=== PATIENT | female | born 1955 | race Caucasian/White ===

== ENCOUNTER → 2018-02-23 12:43 | Outpatient (CLI) | payer MEDICAID, SELFPAY ==
--- NOTE | 2018-02-23 12:45 | BI_ITS ---
MAMMOGRAPHY - BILATERAL SCREENING 3-D CORAL SYNTHESIS REASON FOR EXAM: Female, 62 years old. Bilateral Screening 3-D tomosynthesis PERTINENT HISTORY: No significant family history. TECHNIQUE: 2-D mammograms and 3-D Coral synthesis of the breast (s) were performed. CAD was performed. COMPARISON: June 04, 2015. FINDINGS: The breast composition is composed of scattered fibroglandular density. No dense spiculated masses or suspicious microcalcifications are identified. No architectural distortion is identified. There is no skin thickening or retraction. There has been no significant change since the prior study. BI/SCREENING MAMM (CAD), BILAT IMPRESSION: No mammographic signs of malignancy. Routine yearly mammograms recommended. ASSESSMENT CATEGORY: BIRADS Category 1: Negative. A letter regarding these results will be sent to the patient by the facility within 30 days. FOLLOW UP RECOMMENDATION: Yearly follow up mammogram recommended. (A) Approximately 10% of breast cancers are not detected by mammography. A normal mammogram should not delay biopsy of a clinically suspicious abnormality. Electronically Signed: Dane Vázquez MD at 14:35 EDT , Service support ,
== END ==
PROVIDERS: Visit Provider Obstetrics & Gynecology
DX: Z12.31 Encounter for screening mammogram for malignant neoplasm of breast (principal)
CPT/HCPCS: 77063; 77067

== ENCOUNTER → 2021-06-11 13:57 | Outpatient (CLI) | payer MEDICARE, BC, SELFPAY ==
--- NOTE | 2021-06-11 14:00 | BI_ITS ---
MAMMOGRAPHY - BILATERAL SCREENING REASON FOR EXAM: Female, 66 years old. Routine annual screening examination. PERTINENT HISTORY: Mother with breast cancer. Grandmother with breast cancer. Aunt with breast cancer. TECHNIQUE: Digital bilateral breast coral (3D mammographic acquisition) in the CC and MLO projections. 2-D mediolateral oblique (MLO) and craniocaudad (CC) views of both breasts were obtained. CAD: Full Field Digital Mammography with Computer Added Detection was performed. COMPARISON: Comparison is made with prior study dated 02/23/2018 and 06/04/2015. FINDINGS: Breast Composition: There are scattered areas of fibroglandular density. There are no dominant masses or suspicious calcifications. Stable small benign-appearing bilateral axillary lymph nodes. No other significant abnormalities are identified. There has been no significant change since the prior study. BI/SCRN MAMM (CAD)W/CORAL BILAT IMPRESSION: Stable bilateral screening mammogram. Yearly follow-up mammogram recommended. (A) ASSESSMENT CATEGORY: BIRADS Category 2: Benign. A letter regarding these results will be sent to the patient by the facility within 30 days. Approximately 10% of breast cancers are not detected by mammography. A normal mammogram should not delay biopsy of a clinically suspicious abnormality. [id number] Electronically Signed: Pelon Key MD at 14:51 EDT , Service support ,
== END ==
PROVIDERS: Referring Provider Family Medicine; Visit Provider Family Medicine
DX: Z12.31 Encounter for screening mammogram for malignant neoplasm of breast (principal); Z80.3 Family history of malignant neoplasm of breast
CPT/HCPCS: 77063; 77067

== ENCOUNTER → 2022-07-29 | Outpatient (CLI) | payer MEDICARE, BC, SELFPAY ==
--- NOTE | 2022-07-29 14:42 | BI_ITS ---
MAMMOGRAPHY - BILATERAL SCREENING REASON FOR EXAM: Female, 67 years old. Routine annual screening examination. PERTINENT HISTORY: Mother with breast cancer. Grandmother with breast cancer. Aunt with breast cancer. TECHNIQUE: Digital bilateral breast coral (3D mammographic acquisition) in the CC and MLO projections. 2-D mediolateral oblique (MLO) and craniocaudad (CC) views of both breasts were obtained. CAD: Full Field Digital Mammography with Computer Added Detection was performed. COMPARISON: Comparison is made with prior study 06/11/2021 and 02/23/2018. FINDINGS: Breast Composition: There are scattered areas of fibroglandular density. There are no dominant masses or suspicious calcifications. Stable small benign-appearing bilateral axillary lymph nodes. No other significant abnormalities are identified. There has been no significant change since the prior study. BI/SCRN MAMM (CAD)W/CORAL BILAT IMPRESSION: Stable bilateral screening mammogram. Yearly follow-up mammogram recommended. (A) ASSESSMENT CATEGORY: BIRADS Category 2: Benign. A letter regarding these results will be sent to the patient by the facility within 30 days. Approximately 10% of breast cancers are not detected by mammography. A normal mammogram should not delay biopsy of a clinically suspicious abnormality. [id number] Electronically Signed: Pelon Key MD at 15:25 EDT ,
== END | disposition home or self-care (01) ==
LOC: OPBI 14:42
PROVIDERS: PCP Family Medicine; Visit Provider Nurse Practitioner Women's Health
DX: Z12.31 Encounter for screening mammogram for malignant neoplasm of breast (principal); Z80.3 Family history of malignant neoplasm of breast
CPT/HCPCS: 77063; 77067

== ENCOUNTER → 2023-02-24 | Outpatient (CLI) | payer MEDICARE, BC, SELFPAY ==
--- NOTE | 2023-02-24 12:41 | RAD_ITS ---
INDICATION: PAIN EXAMINATION/TECHNIQUE: X-RAY - RIGHT XR Knee Complete 4 Views or More 5 VIEWS COMPARISON: Not FINDINGS: SOFT TISSUES: No soft tissue swelling or gas. No radiopaque foreign body. BONES/JOINTS: Severe joint space narrowing medial and patellofemoral compartments. Moderate joint space narrowing lateral compartment. Moderate osteophyte formation peripherally of all 3 compartments. RAD/Knee 4 or More Views IMPRESSION: Osteoarthritis as above. Electronically Signed: Srikanth Carvalho MD, VESTA at 19:44 EDT ,
--- NOTE | 2023-02-24 12:44 | RAD_ITS ---
INDICATION: xray bilat knees EXAMINATION/TECHNIQUE: X-RAY - LEFT XR Knee Complete 4 Views or More 4 VIEWS COMPARISON: None FINDINGS: SOFT TISSUES: No soft tissue swelling or gas. No radiopaque foreign body. BONES/JOINTS: Severe joint space narrowing medial compartment, moderate joint space narrowing lateral and patellofemoral compartments. Moderate osteophyte formation peripherally of all 3 compartments. RAD/Knee 4 or More Views IMPRESSION: Osteoarthritis as above. Electronically Signed: Srikanth Carvalho MD, VESTA at 18:09 EDT ,
== END | disposition home or self-care (01) ==
LOC: MTRAD 12:39
PROVIDERS: PCP Nurse Practitioner Family; Referring Provider Nurse Practitioner Family; Visit Provider Nurse Practitioner Family
DX: M25.561 Pain in right knee (principal)
CPT/HCPCS: 73564

== ENCOUNTER → 2023-08-04 | Outpatient (CLI) | payer MEDICARE, BC, SELFPAY ==
--- NOTE | 2023-08-04 13:19 | BI_ITS ---
MAMMOGRAPHY - BILATERAL SCREENING REASON FOR EXAM: Female, 68 years old. Routine annual screening examination. PERTINENT HISTORY: Mother with breast cancer. Grandmother with breast cancer. Aunt with breast cancer. TECHNIQUE: Digital bilateral breast coral (3D mammographic acquisition) in the CC and MLO projections. 2-D mediolateral oblique (MLO) and craniocaudad (CC) views of both breasts were obtained. CAD: Full Field Digital Mammography with Computer Added Detection was performed. COMPARISON: Comparison is made with prior study dated July 29, 2022 and June 11, 2021. FINDINGS: Breast Composition: There are scattered areas of fibroglandular density. There are no dominant masses or suspicious calcifications. Stable small benign-appearing bilateral axillary lymph nodes. No other significant abnormalities are identified. There has been no significant change since the prior study. BI/SCRN MAMM (CAD)W/CORAL BILAT IMPRESSION: Stable bilateral screening mammogram. Yearly follow-up mammogram recommended. (A) ASSESSMENT CATEGORY: BIRADS Category 2: Benign. A letter regarding these results will be sent to the patient by the facility within 30 days. Approximately 10% of breast cancers are not detected by mammography. A normal mammogram should not delay biopsy of a clinically suspicious abnormality. [id number] Electronically Signed: Pelon Key MD at 14:12 EDT ,
== END | disposition home or self-care (01) ==
LOC: OPBI 13:17
PROVIDERS: PCP Nurse Practitioner Family; Referring Provider Family Medicine; Visit Provider Family Medicine
DX: Z12.31 Encounter for screening mammogram for malignant neoplasm of breast (principal); Z80.3 Family history of malignant neoplasm of breast
CPT/HCPCS: 77063; 77067

== ENCOUNTER 2023-08-09 04:08 | Emergency (ER) | payer MEDICARE, BC, SELFPAY ==
[2023-08-09 04:10] VITALS: BP 148/77; RESP 84; TEMP 36.4; O2SAT 18; BMI 48.0
--- NOTE | 2023-08-09 04:12 | EKG12_ITS ---
Test Reason : DYSRHYHMIA Blood Pressure : / mmHG Vent. Rate : 076 BPM Atrial Rate : 076 BPM P-R Int : 190 ms QRS Dur : 092 ms QT Int : 408 ms P-R-T Axes : 070 -37 027 degrees QTc Int : 459 ms Normal sinus rhythm Left axis deviation Nonspecific ST abnormality Abnormal ECG Confirmed by BETI PROCTOR, WILBER ([id number]), medical transcription editor LEON CHINO ([id number]) on 08/10/2023 12:47:44 PM Referred By: MATEUS Confirmed By:WILBER BANG MD
--- NOTE | 2023-08-09 04:12 | CT_ITS ---
INDICATION: trauma EXAMINATION: CT CERVICAL SPINE - CT Spine Cervical W/O Contrast Injection TECHNIQUE: Helically acquired images were obtained of the cervical spine. 2D reformatted images were reviewed. A radiation dose optimization technique was used for this scan. IV Contrast dosage and agent: None. COMPARISON: None. FINDINGS: VERTEBRAE: No fracture or acute compression deformity. No discrete lytic or blastic abnormality. Degenerative straightening of the normal cervical lordosis without listhesis with multilevel anterior bridging osteophytes. Normal craniocervical junction and cervicothoracic junction. DISCS and SPINAL CANAL: Disc height loss most prominent in the lower cervical spine with small posterior disc osteophyte complexes most prominent C5-C6 and C6-C7 with mild spinal canal stenosis and up to moderate to severe right neural foraminal stenosis at C5-C6. No critical stenosis. NECK SOFT TISSUES: No prevertebral soft tissue swelling. There is no cervical adenopathy. Heterogeneous thyromegaly with left thyroid calcification. LUNG APICES: Clear. CT/Spine Cervical without Contras IMPRESSION: No evidence of acute cervical spinal fracture or spondylolisthesis. Spondylosis as above. Homogeneous thyromegaly with calcification. Recommend ultrasound follow-up when clinically able. Electronically Signed: Mayco Keene MD at 5:32 EDT ,
--- NOTE | 2023-08-09 04:12 | CT_ITS ---
INDICATION: head trauma EXAMINATION: CT BRAIN - CT Head or Brain W/O Contrast Injection TECHNIQUE: Multiple axial images were obtained of the head without intravenous contrast. A radiation dose optimization technique was used for this scan. IV Contrast dosage and agent: None. COMPARISON: None FINDINGS: BRAIN PARENCHYMA: No intra- or extra-axial hemorrhage. No evidence of acute infarct. No intracranial mass or mass effect. Mild periventricular and subcortical white matter hypodense chronic small vessel white matter ischemic change. There is preservation of the mancia/white matter interface. Posterior fossa structures are unremarkable. CSF SPACES: Cerebral volume appropriate for age. No hydrocephalus. Basal cisterns are patent. CALVARIUM, SKULL BASE, PARANASAL SINUSES AND MASTOID AIR CELLS: Mild hyperostosis frontalis.No acute osseous finding. Mild scattered paransal sinus mucoperisteal thickening. Mastoid air cells are clear. ORBITS: Both globes, extraocular muscles, optic nerves and retrobulbar fat appear unremarkable. ASPECTS Score for Acute Strokes: 10 CT/Brain/Head without Contrast IMPRESSION: No CT evidence of acute intracranial hemorrhage or injury. Mild senescent changes compatible with age. Electronically Signed: Mayco Keene MD at 5:27 EDT Reading Location ID and State: [facility] / [place] Tel , Service support ,
--- NOTE | 2023-08-09 04:12 | CT_ITS ---
We are attempting to reach an attending provider to discuss findings. An addendum with communication details will be sent when the communication is complete. STUDY: CT CHEST, ABDOMEN T PELVIS WITH CONTRAST REASON FOR EXAM: Female, 68 years old. trauma RADIATION DOSAGE (If Supplied By Facility): CTDIvol = ( 20.88 ) mGy, DLP = ( 2541.36 ) mGycm TECHNIQUE: Transaxial imaging was performed following intravenous administration of 100 ML 370 ISOVUE. Individualized dose optimization techniques were used for this CT. COMPARISON: No relevant priors. FINDINGS: CHEST Multiple small thyroid nodules. Minimal dependent atelectasis. No consolidation, effusion, contusion, or pneumothorax.. There is no demonstrated pleural abnormality. No retrosternal hematoma. Normal heart and pericardium. Mild multivessel coronary atherosclerosis. No mediastinal or hilar adenopathy. Normal unenhanced pulmonary arteries. Mild aortic atherosclerosis without dissection or ectasia. Mild fluid in the distal esophagus without wall thickening or distention. Normal osseous structures. . ABDOMEN PELVIS Normal liver. Normal gallbladder and extrahepatic biliary system. Normal spleen. Normal pancreas. Normal bilateral adrenal glands. Normal right kidney. Left renal exophytic 1.9 cm cyst, no imaging follow-up required.. Well filled bladder without wall thickening or surrounding inflammation. No acute gastric finding. No small bowel distention or wall contusion. Normal appendix. Moderate to large colonic stool burden. No colonic wall thickening or surrounding inflammation. . Mild aortic atherosclerosis without ectasia.. . Absent uterus. No evidence of adnexal mass. MUSCULOSKELETAL: L1 superior endplate compression fracture with less than 10% anterior vertebral height loss and mild retropulsion of the superior endplate causing minimal spinal canal narrowing along with posterior disc bulge. Diffuse anterior vertebral bridging osteophytes in the thoracic spine are noted. Slight widening of the posterior interspinous space at L1-L2. Minimal L1 paravertebral soft tissue edema without large hematoma. Normal abdominal wall. Normal osseous structures. CT/CT Chest, Abd, Pel w/Contrast IMPRESSION: L1 superior endplate compression fracture with mild anterior vertebral height loss and mild retropulsion of the superior plate causing mild spinal canal narrowing and minimal paraspinal edema. Slight widening of the posterior interspinous space at L1-L2 suggestive of interspinous ligament sprain. MRI may be beneficial to exclude additional ligamentous injury. No evidence of other injury within the chest abdomen and pelvis. Mild fluid in the esophagus as can be seen with gastroesophageal reflux. Moderate to large colonic stool burden. Electronically Signed: Mayco Keene MD at 6:11 EDT ,
--- NOTE | 2023-08-09 04:14 | RAD_ITS ---
INDICATION: pain EXAMINATION/TECHNIQUE: X-RAY - LEFT XR Forearm 2 Views 2 VIEWS COMPARISON: No relevant prior comparison study available FINDINGS: SOFT TISSUES: Focal dorsal ulnar mid forearm edema. No subcutaneous emphysema. No radiopaque foreign body. BONES/JOINTS: No acute fracture .. Normal alignment. Preservation of the joint space.. No sclerotic or destructive changes observed. RAD/Forearm 2 Views IMPRESSION: Focal mid forearm soft tissue edema compatible with hematoma or infection. No acute osseous finding Electronically Signed: Mayco Keene MD at 5:46 EDT ,
[2023-08-09] MEDS: 0.9% Normal Saline (1000mL) 1,000 ML 1000 ML IV (04:20)
[2023-08-09 04:21] VITALS: BP 148/77; PULSE 84; RESP 18; TEMP 36.4; O2SAT 100
--- NOTE | 2023-08-09 04:31 | EDS_ITS ---
HPI History of Present Illness Chief Complaint: Trauma [facility] Medical History (Updated 12/24/21 @ 14:57 by Letty Hall) Arthritis Depression DM2 (diabetes mellitus, type 2) Gout HTN (hypertension) Home Medications ascorbate calcium (vitamin C) 500 mg tablet 500 mg PO DAILY 12/24/21 [History Last Taken Unknown] cholecalciferol (vitamin D3) 50 mcg (2,000 unit) capsule 50 mcg PO DAILY 12/24/21 [History Last Taken Unknown] citalopram 40 mg tablet 20 mg PO DAILY 12/24/21 [History Last Taken Unknown] hydroleuronic acid PO 1XD 12/24/21 [History Last Taken Unknown] lisinopril 10 mg-hydrochlorothiazide 12.5 mg tablet 1 tab PO DAILY 12/24/21 [History Last Taken Unknown] nabumetone 750 mg tablet 750 mg PO BID 12/24/21 [History Last Taken Unknown] saw palmeto PO 1XD 12/24/21 [History Last Taken Unknown] Allergy/AdvReac Type Severity Reaction Status Date / Time No Known Allergies Allergy Verified 08/09/23 04:24 Family History (Updated 12/24/21 @ 15:08 by Letty Hall) Mother Hypertension Breast cancer Father Heart disease Grandmother Breast cancer Aunt Breast cancer Surgical History (Updated 12/24/21 @ 15:21 by Lashanda Rey NP, [employer]) History of hysterectomy History of tonsillectomy Social History (Updated 12/24/21 @ 14:59 by Letty Hall) household members: spouse current occupational status: employed and retired current occupation: self Smoking Status: Never smoker alcohol intake: current alcohol intake frequency: holidays/special occasions only substance use type: does not use diet: low carbohydrate what type of physical activity do you participate in: walking frequency: 3-4 times per week seatbelt use: always do you feel safe at home: Yes additional social history: - Art EXAM Physical Exam Const Vital Signs: 08/09/23 04:10 08/09/23 04:21 08/09/23 04:27 Temperature 97.5 F L 97.5 F L 97.5 F L Temperature Source Temporal Temporal Oral Pulse Rate 84 84 Respiratory Rate 84 H 18 18 Blood Pressure 148/77 H 148/77 H 148/77 H Blood Pressure Mean 100 100 100 Pulse Ox 18 100 99 Oxygen Delivery Method Non-Rebreather @ 15L/min Non-Rebreather @ 15L/min Non-Rebreather @ 15L/min Discharge Plan Triage Chief Complaint: Trauma Other Complaint: Back ED Provider: Bernard Padron Dx/Rx/DC Orders Prescriptions: No Action lisinopril-hydrochlorothiazide 10-12.5 mg tablet 1 tab PO DAILY nabumetone 750 mg tablet 750 mg PO BID citalopram 40 mg tablet 20 mg PO DAILY ascorbate calcium (vitamin C) 500 mg tablet 500 mg PO DAILY cholecalciferol (vitamin D3) 50 mcg (2,000 unit) capsule 50 mcg PO DAILY saw palmeto PO 1XD hydroleuronic acid capsule PO 1XD Primary Care Provider: Renetta Henry Referrals: Renetta Henry, [employer] [Primary Care Provider] -
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
[2023-08-09 04:34] LABS: Absolute Lymphocyte Count 1.57 X10^3/uL (0.83-4.51); Absolute Neutrophil Count 14.9 X10^3/uL (2.0-7.7); Basophil# 0.08 X10^3/uL; Basophil% 0.4 % (0-1); Eosinophil# 0.11 X10^3/uL; Eosinophils% 0.6 % (0-5); Hematocrit 43.7 % (37-47); Hemoglobin 13.8 g/dL (12.0-15.0); Lymphocyte # 1.57 X10^3/ul (0.83-4.51); Lymphocyte % 8.3 % (19-41); Mean Corp Hgb Conc 31.6 g/dL (32-36); Mean Corpuscular Hgb 28.2 pg (27.0-32.0); Mean Corpuscular Volume 89.2 fL (81-99); Mean Platelet Vol. 10.1 fl (6.2-12.0); Monocyte# 1.85 X10^3/uL; Monocyte% 9.8 % (0-10); NRBC Flagged by Analyzer 0 % (0-5); Neutrophil # 14.87 X10^3/uL (2.7-7.7); Neutrophil % 78.5 % (47-70); POSITIVE DIFFERENTIAL YES; Platelet Count 213 K/mm3 (150-450); RBC Distribution Width CV 15.1 % (11.6-14.6); RBC Distribution Width SD 49.6 fl (35.1-43.9); White Blood Count 18.9 K/mm3 (4.4-11.0)
[2023-08-09 04:36] LABS: Carboxyhemoglobin Frac (CO) 5.6 % (0.0-1.5)
[2023-08-09 04:40] LABS: Differential Indicated SCAN CRITERIA MET
[2023-08-09 04:52] LABS: ALB/GLOB Ratio 1.2 RATIO (0.9-2.4); AST(SGOT) 59 U/L (15-37); Alanine Aminotransfer ALT/SGPT 60 U/L (13-56); Albumin, Serum 3.8 g/dL (3.2-5.0); Alkaline Phosphatase 79 U/L (45-117); Anion Gap 10 (5-15); BUN 40 mg/dL (7-18); BUN/Creat Ratio 35.4 RATIO (10-20); Chloride 108 mmol/L (98-107); Creatinine, Serum 1.13 mg/dL (0.55-1.02); EST Glomerular Filtration Rate 51 mL/min (>60); Est Glom Filt Rate - Afr Amer 62 mL/min (>60); Estimated Creatinine Clearance 45.23 ml/min; Globulin 3.1 g/dL (2.2-4.2); Glucose 137 mg/dL (74-106); Potassium 3.4 mmol/L (3.5-5.1); Protein, Total 6.9 g/dL (6.4-8.2); Sodium Level 142 mmol/L (136-145); Troponin-I HS 11 pg/mL (3.0-54.0)
[2023-08-09 05:00] LABS: Differential Comment SCANNED
[2023-08-09 05:16] VITALS: BP 141/97; PULSE 84; RESP 16; O2SAT 100
[2023-08-09 05:23] LABS: Allen Test Positive; Base Excess -4 mmol/L (-2 to +2); Blood Gas Specimen Type ART; Mode Not entered; O2 Delivery Device NRB; PO2 242 mmHG (75-100); SITE L Radial; SO2 100 % (95-99); Total Carbon Dioxide 21 mmol/L; pCO2 29.2 mmHg (35-45); pH 7.44 (7.35-7.45)
[2023-08-09] MEDS: 0.9% Normal Saline (1000mL) 1,000 ML 999 ML IV (05:29)
[2023-08-09] MEDS: Morphine 4 MG/ML Syringe IV (05:43)
[2023-08-09] MEDS: Ondansetron 4 MG/2 ML Vial IV (05:43)
[2023-08-09 05:51] LABS: Alcohol, Blood (Medical)-Serum < 3.0 mg/dL
[2023-08-09 06:25] VITALS: BP 154/87; PULSE 74; RESP 16; O2SAT 100
[2023-08-09 06:46] VITALS: BP 154/87; PULSE 74; RESP 16; TEMP 36.4; O2SAT 100
[2023-08-09 12:31] LABS: Carboxyhemoglobin Order ORDER TUBE
[2023-08-09 13:02] LABS: Pathologist Review Reviewed
== END 2023-08-09 07:20 | disposition short-term general hospital (02) ==
LOC: ED 06:01
PROVIDERS: Emergency Provider Student in an Organized Health Care Education/Training Program; PCP Nurse Practitioner Family; Visit Provider Student in an Organized Health Care Education/Training Program
DX: M48.56XA Collapsed vertebra, not elsewhere classified, lumbar region, initial encounter for fracture (principal); E11.9 Type 2 diabetes mellitus without complications; I10 Essential (primary) hypertension; S39.012A Strain of muscle, fascia and tendon of lower back, initial encounter; X00.5XXA Jump from burning building or structure in uncontrolled fire, initial encounter; Y92.008 Other place in unspecified non-institutional (private) residence as the place of occurrence of the external cause; F32.A Depression, unspecified; Z79.899 Other long term (current) drug therapy; Z90.710 Acquired absence of both cervix and uterus
CPT/HCPCS: 99285; 36415; 36600; 70450; 71260; 72125; 73090; 74177; 80053; 82077; 82375; 82803; 84484; 85025; 93005; J7030; A4216; J2405

== ENCOUNTER 2023-08-12 18:26 | Inpatient (IN) | payer MEDICARE, BC, SELFPAY ==
[2023-08-12 18:54] VITALS: BP 176/95; PULSE 73; RESP 18; TEMP 37.2; O2SAT 96; BMI 46.1
[2023-08-12] MEDS: oxyCODONE 5 MG Tablet PO (19:49)
[2023-08-12] MEDS: Nystatin Powder 15gm Bottle 1 APPLIC TOPICAL (19:50)
[2023-08-12] MEDS: Losartan Potassium 100 MG Tablet PO (19:50)
[2023-08-12] MEDS: BACITRACIN 15 GM Tube 1 APPLIC TOPICAL (19:51)
[2023-08-12] MEDS: hydroCHLOROthiazide 12.5mg 12.5 MG PO (19:51)
[2023-08-12] MEDS: Senna/Docusate Sodium 1 Tablet PO (19:52)
[2023-08-12] MEDS: Etodolac 300 MG Capsule PO (19:52)
[2023-08-12] MEDS: cycloBENZAPRine HCl 5 MG TABLET PO (19:53)
[2023-08-12] MEDS: Citalopram 20 MG Tablet PO (19:53)
--- NOTE | 2023-08-12 21:23 | US_ITS ---
INDICATION: CT thyromegaly with calcifications EXAMINATION: Ultrasound US Thyroid (eg thyroid, parathyroid, parotid) TECHNIQUE: Leung scale and color doppler imaging was performed of the thyroid gland. COMPARISON: FINDINGS: RIGHT THYROID LOBE: 5.8 x 2.7 x 1.8 cm. Heterogeneity with [multiple cystic thyroid nodules up to 12 mm. LEFT THYROID LOBE: 5.2 x 2.5 x 1.8 cm. Heterogeneity with a complex thyroid cystic nodule measuring 1.7 x 1.3 x 1.0 cm. There is a low pole heterogeneous mass measuring 2.4 x 1.4 x 1.4 cm. ISTHMUS: 5 mm. 9 x 7 x 5 mm cystic nodule. US/Thyroid IMPRESSION: Bilateral nodules as noted. Electronically Signed: Joe Nassar DO at 0:02 EDT ,
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
[2023-08-12 22:00] VITALS: BP 165/85; PULSE 75; RESP 16; TEMP 36.6; O2SAT 96
[2023-08-13] MEDS: traMADol 50 MG Tablet PO ×4 (00:04→17:30)
[2023-08-13] MEDS: Magnesium Hydroxide 30 ML UDC PO (02:57)
[2023-08-13] MEDS: cycloBENZAPRine HCl 5 MG TABLET PO ×3 (05:22→22:41)
[2023-08-13] MEDS: Enoxaparin 40 MG/0.4 ML Syringe SC (05:22)
[2023-08-13] MEDS: Acetaminophen 500 MG Tablet 1000 MG PO ×3 (05:22→22:53)
[2023-08-13 05:37] LABS: Hematocrit 40.6 % (37-47); Hemoglobin 13.2 g/dL (12.0-15.0); Mean Corp Hgb Conc 32.5 g/dL (32-36); Mean Corpuscular Hgb 28.2 pg (27.0-32.0); Mean Corpuscular Volume 86.8 fL (81-99); Mean Platelet Vol. 9.7 fl (6.2-12.0); Platelet Count 219 K/mm3 (150-450); RBC Distribution Width CV 14.8 % (11.6-14.6); RBC Distribution Width SD 47.3 fl (35.1-43.9); Red Blood Count 4.68 M/mm3 (4.2-5.4); White Blood Count 12.3 K/mm3 (4.4-11.0)
[2023-08-13 05:43] VITALS: BMI 45.9
[2023-08-13 06:09] LABS: ALB/GLOB Ratio 0.9 RATIO (0.9-2.4); AST(SGOT) 15 U/L (15-37); Alanine Aminotransfer ALT/SGPT 34 U/L (13-56); Albumin, Serum 3.2 g/dL (3.2-5.0); Alkaline Phosphatase 77 U/L (45-117); Anion Gap 7 (5-15); BUN 17 mg/dL (7-18); BUN/Creat Ratio 22.8 RATIO (10-20); Chloride 102 mmol/L (98-107); Creatinine, Serum 0.75 mg/dL (0.55-1.02); EST Glomerular Filtration Rate 82 mL/min (>60); Est Glom Filt Rate - Afr Amer 100 mL/min (>60); Estimated Creatinine Clearance 51.11 ml/min; Globulin 3.7 g/dL (2.2-4.2); Glucose 115 mg/dL (74-106); Magnesium 2.2 mg/dL (1.6-2.6); Phosphorus 4.4 mg/dL (2.5-4.9); Potassium 3.7 mmol/L (3.5-5.1); Protein, Total 6.9 g/dL (6.4-8.2); Sodium Level 138 mmol/L (136-145)
[2023-08-13 07:39] VITALS: BP 151/83; PULSE 75; RESP 16; TEMP 36.7; O2SAT 95
[2023-08-13] MEDS: Losartan Potassium 100 MG Tablet PO (07:50)
[2023-08-13] MEDS: Etodolac 300 MG Capsule PO ×2 (07:51→22:42)
[2023-08-13] MEDS: Senna/Docusate Sodium 1 Tablet 2 TABLET PO ×2 (07:51→22:44)
[2023-08-13] MEDS: Nystatin Powder 15gm Bottle 1 APPLIC TOPICAL ×2 (07:52→22:42)
[2023-08-13] MEDS: Ascorbic Acid 500 MG Tablet PO (07:52)
[2023-08-13] MEDS: hydroCHLOROthiazide 12.5mg 12.5 MG PO (07:52)
[2023-08-13] MEDS: Menthol/Lanolin/Calamine/Znox 113 GM Tube 1 APPLIC TOPICAL ×2 (07:52→22:40)
[2023-08-13] MEDS: Polyethylene Glycol 3350 17 GM PACKET PO (07:53)
[2023-08-13] MEDS: oxyCODONE 5 MG Tablet 10 MG PO (08:02)
[2023-08-13] MEDS: BACITRACIN 15 GM Tube 1 APPLIC TOPICAL ×2 (08:08→22:39)
[2023-08-13] MEDS: Magnesium Citrate 300 ML PO (08:38)
--- NOTE | 2023-08-13 16:09 | CASEMGMT ---
Social Work SW presented to room, introduced self and role. Pt visibly uncomfortable and reports to feeling nauseous and constipated. SW offered to return on Wednesday to speak. Pt was about to get sick and SW exited room, notified nursing. Dee Dee Go, [employer] OPHTHALMOLOGY TECHNICIAN
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
[2023-08-13 16:28] VITALS: O2SAT 94
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
[2023-08-13] MEDS: proMETHazine 25 MG Tablet PO (17:30)
[2023-08-13] MEDS: Lactulose 20 GM/30 ML UDC 200 GM RC (19:24)
[2023-08-13 20:00] VITALS: BP 161/88; PULSE 81; RESP 16; TEMP 36.8; O2SAT 93
--- NOTE | 2023-08-13 20:50 | RAD_ITS ---
EXAM: XR ABDOMEN, 1 VIEW CLINICAL INDICATION: nausea, consitpation TECHNIQUE: Frontal supine view of the abdomen/pelvis. COMPARISON: No relevant prior studies available. FINDINGS: LOWER THORAX: No acute pathology. GASTROINTESTINAL TRACT: There is gas seen within large and small bowel may represent ileus. ORGANS: Unremarkable as visualized. No organomegaly. No abnormal calcifications. BONES/JOINTS: No acute pathology. SOFT TISSUES: No acute pathology. RAD/Abdomen Single View IMPRESSION: Gas in large and small bowel loops which may represent ileus. Electronically Signed: Kenneth Ramirez MD at 22:02 EDT ,
[2023-08-13 21:34] VITALS: PULSE 97; RESP 18; O2SAT 95
--- NOTE | 2023-08-13 21:39 | CPS ---
Pt. states that she doesn't feel that she's getting enough pressure with current CPAP settings. Pt. placed on CPAP 13 at this time. She states it feels more like what she's used to at home. Pt. comfortable at this time.
[2023-08-13] MEDS: traZODone 100 MG Tablet PO (22:41)
[2023-08-13] MEDS: Citalopram 20 MG Tablet PO (22:41)
[2023-08-13] MEDS: Mirtazapine 15 MG Tablet 7.5 MG PO (22:43)
[2023-08-13] MEDS: Simethicone 40MG/0.6ML Bottle 80 MG PO (23:04)
[2023-08-14] MEDS: traMADol 50 MG Tablet PO ×5 (00:29→23:54)
[2023-08-14] MEDS: Acetaminophen 500 MG Tablet 1000 MG PO ×3 (06:13→21:00)
[2023-08-14] MEDS: cycloBENZAPRine HCl 5 MG TABLET PO ×3 (06:13→20:57)
[2023-08-14] MEDS: Enoxaparin 40 MG/0.4 ML Syringe SC (06:14)
[2023-08-14 07:17] VITALS: O2SAT 93
[2023-08-14 08:00] VITALS: BP 165/90; PULSE 81; RESP 16; TEMP 36.8; O2SAT 95
[2023-08-14] MEDS: 0.9% Normal Saline (1000mL) 1,000 ML 75 ML IV ×2 (08:07→20:51)
[2023-08-14] MEDS: Senna/Docusate Sodium 1 Tablet 2 TABLET PO ×2 (08:08→20:58)
[2023-08-14] MEDS: 0.9% Saline Lock 10 ML Syringe IV (08:08)
[2023-08-14] MEDS: Polyethylene Glycol 3350 17 GM PACKET PO (08:09)
[2023-08-14] MEDS: Nystatin Powder 15gm Bottle 1 APPLIC TOPICAL ×2 (08:11→20:58)
[2023-08-14] MEDS: Menthol/Lanolin/Calamine/Znox 113 GM Tube 1 APPLIC TOPICAL ×2 (08:11→20:57)
[2023-08-14] MEDS: hydroCHLOROthiazide 12.5mg 12.5 MG PO (08:12)
[2023-08-14] MEDS: Ascorbic Acid 500 MG Tablet PO (08:12)
[2023-08-14] MEDS: Losartan Potassium 100 MG Tablet PO (08:13)
[2023-08-14] MEDS: Etodolac 300 MG Capsule PO ×2 (08:14→20:58)
[2023-08-14] MEDS: Simethicone 40MG/0.6ML Bottle 80 MG PO ×4 (09:26→20:58)
[2023-08-14] MEDS: BACITRACIN 15 GM Tube 1 APPLIC TOPICAL ×2 (12:21→20:56)
--- NOTE | 2023-08-14 15:30 | REHABEVAL_ITS ---
Admission Information Primary Diagnosis:: L1 compression fracture Status Changes from Prescreening?: No changes Identified Actual Problem List:: Pain, ALteration in Cmfrt, Depression, Bowel, Constipation, Alteration in Sleep, Alteration in Nutrition, Mobility Impaired and Ineffective Communication Potential Problem List:: DVT, Bleeding, Infection, UTI, Aspiration, Falls, Skin Integrity and Depression Risk of Complications DVT: LMWH Bleeding: Monitor Lab Values, Nursing to Teach Precautions for anti-coagulation therapy., Wound, if applicable, to be assessed every shift. and Stroke patients assessed for lethargy or change in status. Infection: Clinical Staff to Monitor for S/S of infection: and S/S of infection include fever, redness, warmth, etc. Urinary Tract Infection: Monitor for frequency, burning, discomfort, or incontinence. and Nursing will obtain urine sample for urinalysis and C&S when ordered. Aspiration: Clinical staff will monitor for coughing, drooling, congestion., Speech will evaluate swallowing and dsyphasia. and Nursing will monitor patient swallowing during meals. Falls: Patient will be evaluated for Fall Precautions and Patient will be placed on Fall Precautions as indicated per protocol. Skin Breakdown: Nursing will assess skin daily using assessment tool. and Nursing will place on Skin Breakdown Precautions as indicated. Pain: Clinical staff will assess patient's pain level per protocol., Medications will be given, if needed, and the pain level reassessed. and Other methods: Massage, distraction, decrease stimulus, etc. used PRN. Plan of Care Patient requires physician specializing in physical medicine and rehab oversight to provide close medical supervision of rehab issues including: Pain Management, Sleep Problems, Bowel and Bladder, Medical and co-morbidity Management, DVT prophylaxis, Rehabilitation Leadership and Coordination of treatment team Patient needs Physical Therapy: At least 5 out of 7 days and For a minimum of 1.5 hrs Patient needs Physical Therapy to improve:: Mobility, Strengthening, Transfers, Stretching, ROM, Endurance, Stairs, Gait and Balance Patient needs Occupational Therapy: At least 5 out of 7 days and For a minimum of 1.5 hrs Patient needs Occupational Therapy to improve ADL's incl.: Eating, Grooming, Bathing, Dressing, Toileting, Toilet transfers, Community Reintegration, Higher functioning activities, Household tasks and Adaptive Equipment Patient requires 24/7 Rehabilitation Nursing for: Pain Issues, Identifying and preventing risk factors, Monitoring and reporting current medical conditions, Assisting with ambulation, transfer, and all ADL's, Teaching patients about disease process and medications, Family teaching, Providing safe environment, Bowel and Bladder Issues, Skin integrity and Medication Management Patient needs Hairspring Cutter/ Case Management for: Discharge Planning, Arranging Home Equipment or Services and Family Interventions Patient needs Dietary and Nutrition Services for: Adequate Nutrition, Nutritional Supplements and Nutritional Education Goals Patient will remain: free from falls and or injury at time of discharge. Patient will perform bed mobility at: MOD I level of assist. Patient will complete transfers from bed to chair at: Standby Assist. Patient will ambulate: 50 feet and - (CGA) Patient will complete upper body dressing at: MOD I level of assist. Patient will complete lower body dressing at: MOD I level of assist. Patient will complete toileting at: MOD I level of assist. Patient will complete grooming at: MOD I level of assist. Patient will complete home management skills at: MOD I level of assist. Patient will achieve: with standby assist Patient's skin will: remain intact and free from infection. Patient will receive: adequate nutrition. Discharge Planning Pt Prognosis for Sig. Practical Improv. w/in Reasonable Time: Good Estimated Length of stay (days): 21 Anticipated D/C Destination: Home with Outpt Therapy Was Preadmission Assessment Accurate?: Yes
[2023-08-14 19:26] VITALS: BP 141/75; PULSE 81; RESP 17; TEMP 36.6; O2SAT 97
[2023-08-14] MEDS: Citalopram 20 MG Tablet PO (20:57)
[2023-08-14] MEDS: Mirtazapine 15 MG Tablet 7.5 MG PO (20:58)
[2023-08-14] MEDS: traZODone 100 MG Tablet PO (20:58)
[2023-08-14 21:55] VITALS: PULSE 81; RESP 16; O2SAT 97
--- NOTE | 2023-08-15 04:56 | CPS ---
Patient wearing Sleep Lab CPAP machine
[2023-08-15] MEDS: Enoxaparin 40 MG/0.4 ML Syringe SC (06:37)
[2023-08-15] MEDS: Acetaminophen 500 MG Tablet 1000 MG PO ×3 (06:40→21:07)
[2023-08-15] MEDS: traMADol 50 MG Tablet PO ×4 (06:40→23:11)
[2023-08-15] MEDS: cycloBENZAPRine HCl 5 MG TABLET PO ×3 (06:41→21:08)
[2023-08-15] MEDS: Menthol/Lanolin/Calamine/Znox 113 GM Tube 1 APPLIC TOPICAL ×2 (06:42→21:09)
[2023-08-15] MEDS: Nystatin Powder 15gm Bottle 1 APPLIC TOPICAL ×2 (06:43→21:09)
[2023-08-15 07:35] VITALS: BP 136/67; PULSE 81; RESP 16; TEMP 36.4; O2SAT 96
[2023-08-15 07:48] VITALS: O2SAT 91
[2023-08-15] MEDS: Senna/Docusate Sodium 1 Tablet 2 TABLET PO ×2 (08:46→21:07)
[2023-08-15] MEDS: Losartan Potassium 100 MG Tablet PO (08:46)
[2023-08-15] MEDS: Polyethylene Glycol 3350 17 GM PACKET PO (08:46)
[2023-08-15] MEDS: Etodolac 300 MG Capsule PO ×2 (08:46→21:08)
[2023-08-15] MEDS: hydroCHLOROthiazide 12.5mg 12.5 MG PO (08:47)
[2023-08-15] MEDS: BACITRACIN 15 GM Tube 1 APPLIC TOPICAL ×2 (08:47→21:06)
[2023-08-15] MEDS: Ascorbic Acid 500 MG Tablet PO (08:47)
[2023-08-15] MEDS: Simethicone 40MG/0.6ML Bottle 80 MG PO ×4 (08:47→21:11)
[2023-08-15] MEDS: 0.9% Normal Saline (1000mL) 1,000 ML 75 ML IV (10:34)
[2023-08-15] MEDS: 0.9% Saline Lock 10 ML Syringe IV (13:22)
--- NOTE | 2023-08-15 14:00 | NURSING ---
Patient assisted with shower and IV LAC became infiltrated shortly after. Patient had x1 attempt with nursing to replace IV and after the attempt was unsuccessful she refused anymore attempts and asked that we not put another one in because she is feeling better. Patient has not been nauseated all weekend, she has gotten up in chair and did therapy well, eating and drinking ok, abdomen soft not hard and bs x 4. Dr. Thomas aware and ok to dc iv fluids.
[2023-08-15 20:47] VITALS: BP 144/83; PULSE 77; RESP 18; TEMP 36.6; O2SAT 95
[2023-08-15 20:53] VITALS: PULSE 81; RESP 18; O2SAT 97
[2023-08-15] MEDS: Mirtazapine 15 MG Tablet 7.5 MG PO (21:07)
[2023-08-15] MEDS: traZODone 100 MG Tablet PO (21:08)
[2023-08-15] MEDS: Citalopram 20 MG Tablet PO (21:08)
[2023-08-16] MEDS: traMADol 50 MG Tablet PO ×4 (05:30→23:25)
[2023-08-16] MEDS: cycloBENZAPRine HCl 5 MG TABLET PO ×3 (05:30→21:47)
[2023-08-16] MEDS: Menthol/Lanolin/Calamine/Znox 113 GM Tube 1 APPLIC TOPICAL ×2 (05:30→21:43)
[2023-08-16] MEDS: Acetaminophen 500 MG Tablet 1000 MG PO ×3 (05:30→21:45)
[2023-08-16] MEDS: Nystatin Powder 15gm Bottle 1 APPLIC TOPICAL ×2 (05:30→21:44)
[2023-08-16] MEDS: Enoxaparin 40 MG/0.4 ML Syringe SC (05:30)
--- NOTE | 2023-08-16 07:24 | NURSING ---
Pt remarked that she didn't understand why the therapy steps were in the corridor by elevator. Pt stated that she was wearing a hospital gown (which was opened in the back) and was taken to corridor by elevator to complete stair training. Pt made this comment twice which indicated to this nurse that she was becoming preoccupied with this so I querried staff re: this issue. Therapist and day staff assured me that there would not be an incident where a pt would be out in the wright without proper covering.
[2023-08-16 07:33] VITALS: BP 122/86; PULSE 75; RESP 15; TEMP 36.2; O2SAT 95
--- NOTE | 2023-08-16 08:32 | CASEMGMT ---
Social Work IDT met with patient for Team meeting. Discussed patient's progress in PT/OT/SN. Educated to Medicare benefit. Will update pt with approval of days once received. Noted pt to have safety concerns and needing max-total for ADLs. Noted pt's difficulty with motivation. SW will revisit pt after therapy session to complete assessment. Will ReTeam weekly. SW will continue to follow for DC planning. IVETTE DuncanW
[2023-08-16] MEDS: Losartan Potassium 100 MG Tablet PO (09:03)
[2023-08-16] MEDS: Etodolac 300 MG Capsule PO ×2 (09:03→21:45)
[2023-08-16] MEDS: hydroCHLOROthiazide 12.5mg 12.5 MG PO (09:03)
[2023-08-16] MEDS: Simethicone 40MG/0.6ML Bottle 80 MG PO ×4 (09:03→21:44)
[2023-08-16] MEDS: Ascorbic Acid 500 MG Tablet PO (09:03)
[2023-08-16] MEDS: Senna/Docusate Sodium 1 Tablet 2 TABLET PO ×2 (09:03→21:45)
[2023-08-16] MEDS: BACITRACIN 15 GM Tube 1 APPLIC TOPICAL ×2 (09:04→21:43)
[2023-08-16] MEDS: Polyethylene Glycol 3350 17 GM PACKET PO (09:05)
--- NOTE | 2023-08-16 19:19 | PN_ITS ---
Subjective Subjective Patient seen, examined on Team Rounds. 3 days prior, she developed nausea, vomiting, no appetite. X-ray abdomen confirmed ileus, she was started on IV fluids, simethicone, and her ileus has resolved. Her mood is better today because the ileus was causing her a lot of distress, in addition to the low back pain from L1 compression fracture, she does report any improvement in low back pain since admission, she is walking well. Objective Data Objective Data Vital Signs: Vital Signs Temp Pulse Resp BP Pulse Ox O2 Del Method FiO2 97.2 F L 75 15 122/86 H 95 Room Air 21 08/16/23 07:33 08/16/23 07:33 08/16/23 07:33 08/16/23 07:33 08/16/23 07:33 08/16/23 07:33 08/14/23 01:30 Oxygen Delivery Method Room Air Weight: 129.6 kg Body Mass Index (BMI) 45.9 Intake & Output: Intake and Output for Last 24 Hours 08/14/23 08/15/23 08/16/23 23:59 23:59 23:59 Intake Total 1655 / 1775 2617.5 / 2617.5 1160 / 1160 Output Total 1300 / 1300 Balance 1655 / 1775 1317.5 / 1317.5 1160 / 1160 Lab / Micro Data 08/13/23 05:14 08/13/23 05:14 Physical Exam Const alert General Appearance: cooperative HEENT normocephalic Eyes PERRL and EOMs intact bilaterally Neck supple, no JVD and no carotid bruits Resp normal respiratory effort, normal air movement and clear to auscultation bilaterally Cardio regular rate and regular rhythm GI normal to inspection, nondistended, normoactive bowel sounds, non-tender and non-distended Extremity normal capillary refill General Extremity: Negative for edema Skin no rashes or lesions noted General Skin Exam: no breakdown Psych affect normal Appearance: appropriate Assessment & Plan Assessment/Plan (1) Debility: (2) Low back pain: (3) Compression fracture of L1 lumbar vertebra: (4) Closed L3 vertebral fracture: (5) Morbid obesity: (6) Diabetes mellitus: (7) HTN (hypertension): (8) Osteoarthritis: (9) Depression: (10) Gout: PLAN: Plan 68 year old female with below past medical history hospitalized for L1 superior endplate compression fracture, L2 superior endplate fracture, admitted to for 3 hours daily rehabilitation, strengthening, prior to discharge home with . * Debility - PT/OT. * Pain - Tylenol 1000mg q8, Tramadol 50mg q6 prn pain (1-5), Oxycodone 10mg q4 prn pain (6-10), Lodine 300mg bid. * Bowel - Miralax 17gm daily, senna/colace 2 tablets bid, Dulcolax 10mg pr daily prn, MOM 30ml po daily prn. * DVT prophylaxis - Lovenox 40mg sc daily. * Vitamin C deficiency - Vitamin C 500mg daily. * Abrasion - Bacitracin ointment topical bid. * Vitamin D deficiency - D3 125mcg daily, D2 50,000 units per week. * Depression - Citalopram 20mg daily. * Muscle spasm - Flexeril 5mg tid. * Hypertension - Losartan 100mg daily, HCTZ 12.5mg daily. * Skin irritation - Calmoseptine topical bid. * Tinea Corporis - Nystatin topical bid. * Insomnia - Trazodone 100mg qhs, Mirtazapine 7.5mg qhs. * Gas - Simethicone 80mg pchs. * Dry nares - [place] 2 sprays nasal tid prn. Capacity Capacity Assessment Tool Can the patient make a choice & communicate that choice?: Yes Can the patient understand benefits, risks and alternatives?: Yes Can the patient make a logical, rational choice?: Yes Is the choice the patient makes consistent w/ their values?: Yes Is there an impending, emergent risk to the patient?: No Does the patient have an Advance Directive?: No Is there a Surrogate Available?: Yes i.e. HCPOA: Yes i.e. close relative (spouse, child, parent, sibling)?: Yes
[2023-08-16 19:22] VITALS: BP 139/77; PULSE 77; RESP 18; TEMP 36.3; O2SAT 95
[2023-08-16] MEDS: Mirtazapine 15 MG Tablet 7.5 MG PO (21:46)
[2023-08-16] MEDS: traZODone 100 MG Tablet PO (21:47)
[2023-08-16] MEDS: Citalopram 20 MG Tablet PO (21:48)
[2023-08-16 22:00] VITALS: PULSE 73; RESP 16; O2SAT 95
[2023-08-16] MEDS: Sodium Chloride 0.65% 1 SPRAY SPRAY.BTL 2 SPRAY NASAL (22:03)
--- NOTE | 2023-08-16 22:16 | CPS ---
PATIENT STATED THAT SHE WOULD BE ABLE TO PLACE CPAP ON OWN.
[2023-08-17] MEDS: Menthol/Lanolin/Calamine/Znox 113 GM Tube 1 APPLIC TOPICAL ×2 (06:02→21:37)
[2023-08-17] MEDS: cycloBENZAPRine HCl 5 MG TABLET PO ×3 (06:03→21:37)
[2023-08-17] MEDS: Nystatin Powder 15gm Bottle 1 APPLIC TOPICAL ×2 (06:03→21:37)
[2023-08-17] MEDS: Acetaminophen 500 MG Tablet 1000 MG PO ×3 (06:03→21:38)
[2023-08-17] MEDS: Enoxaparin 40 MG/0.4 ML Syringe SC (06:05)
[2023-08-17] MEDS: traMADol 50 MG Tablet PO ×4 (06:14→23:09)
[2023-08-17 08:14] VITALS: BP 151/85; PULSE 75; RESP 17; TEMP 36.4; O2SAT 97
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
[2023-08-17] MEDS: Simethicone 40MG/0.6ML Bottle 80 MG PO ×4 (09:03→21:38)
[2023-08-17] MEDS: BACITRACIN 15 GM Tube 1 APPLIC TOPICAL ×2 (09:03→21:36)
[2023-08-17] MEDS: hydroCHLOROthiazide 12.5mg 12.5 MG PO (09:04)
[2023-08-17] MEDS: Losartan Potassium 100 MG Tablet PO (09:04)
[2023-08-17] MEDS: Senna/Docusate Sodium 1 Tablet 2 TABLET PO ×2 (09:04→21:40)
[2023-08-17] MEDS: Ascorbic Acid 500 MG Tablet PO (09:04)
[2023-08-17] MEDS: Etodolac 300 MG Capsule PO ×2 (09:04→21:37)
[2023-08-17] MEDS: Polyethylene Glycol 3350 17 GM PACKET PO (09:05)
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
--- NOTE | 2023-08-17 15:56 | CASEMGMT ---
Addendum entered by Dee Dee Go 08/18/23 08:56: Received message from pt requesting hospital bed now. SW sent referral to [facility] for FWW and hospital bed, via [employer]. Original Note: Social Work Pt requesting to speak with this worker. SW met with pt and discussed area counseling centers for pt and . Assisted pt in narrowing down selections based on pt's preferences. Pt will speak with and make a selection. SW offered to contact several agencies to ensure insurance coverage and focusing on trauma/grief/loss counseling. Pt appreciative. Pt also requesting to [place] home 08/20 as that is when dtr is returning home and will be alone. SW offered HHC or OP therapy. Pt elected HHC then transition to OP. SW offered list of skilled HHC agencies with quality and resource data but pt denied. SW inquired about DME needs. Pt denied hospital bed and requesting FWW and CPAP. SW phoned referral to [facility] for PT/OT/SW. SW to refer to [facility] for FWW. FWW will be delivered to pt's room. SW updated nursing to contact sleep lab about sleep study and CPAP. Sleep lab has study scheduled for 08/24 and will follow up with loaning CPAP to pt to use until study. Pt expressed understanding and offered to purchase CPAP online, if needed. Family to transport pt at [place]. Pt will stay with at VARGAS's house located at: [address] Plan: [place] home 08/20, [facility] PT/OT/SW, FWW Dee Dee Go, VOLUNTEER SERVICES SUPERVISOR PALLIATIVE CARE PHYSICIAN
[2023-08-17] MEDS: Ergocalciferol 1.25 MG (50, 000 UNIT) Capsule PO (19:51)
[2023-08-17 21:00] VITALS: BP 148/82; PULSE 78; RESP 16; TEMP 36.4; O2SAT 98
[2023-08-17 21:30] VITALS: PULSE 76; RESP 16; O2SAT 96
[2023-08-17] MEDS: traZODone 100 MG Tablet PO (21:37)
[2023-08-17] MEDS: Citalopram 20 MG Tablet PO (21:37)
[2023-08-17] MEDS: Mirtazapine 15 MG Tablet 7.5 MG PO (21:38)
[2023-08-17] MEDS: Sodium Chloride 0.65% 1 SPRAY SPRAY.BTL 2 SPRAY NASAL (22:00)
[2023-08-18] MEDS: Enoxaparin 40 MG/0.4 ML Syringe SC (06:32)
[2023-08-18] MEDS: cycloBENZAPRine HCl 5 MG TABLET PO ×3 (06:32→21:53)
[2023-08-18] MEDS: Acetaminophen 500 MG Tablet 1000 MG PO ×3 (06:32→21:54)
[2023-08-18] MEDS: Nystatin Powder 15gm Bottle 1 APPLIC TOPICAL ×2 (06:36→22:13)
[2023-08-18] MEDS: traMADol 50 MG Tablet PO ×4 (06:36→23:37)
[2023-08-18] MEDS: Menthol/Lanolin/Calamine/Znox 113 GM Tube 1 APPLIC TOPICAL ×2 (06:37→21:58)
[2023-08-18] MEDS: Sodium Chloride 0.65% 1 SPRAY SPRAY.BTL 2 SPRAY NASAL ×3 (06:41→20:30)
[2023-08-18 07:30] VITALS: BP 167/82; PULSE 73; RESP 16; TEMP 37.2; O2SAT 96
[2023-08-18 07:31] VITALS: BP 167/82; PULSE 73; RESP 16; TEMP 37.1; O2SAT 96
[2023-08-18] MEDS: BACITRACIN 15 GM Tube 1 APPLIC TOPICAL ×2 (09:30→21:56)
[2023-08-18] MEDS: Polyethylene Glycol 3350 17 GM PACKET PO (09:30)
[2023-08-18] MEDS: predniSONE 20 MG Tablet 40 MG PO (09:30)
[2023-08-18] MEDS: Losartan Potassium 100 MG Tablet PO (09:31)
[2023-08-18] MEDS: hydroCHLOROthiazide 12.5mg 12.5 MG PO (09:31)
[2023-08-18] MEDS: Ascorbic Acid 500 MG Tablet PO (09:31)
[2023-08-18] MEDS: Etodolac 300 MG Capsule PO ×2 (09:31→21:53)
[2023-08-18] MEDS: Senna/Docusate Sodium 1 Tablet 2 TABLET PO ×2 (09:32→21:54)
[2023-08-18] MEDS: Simethicone 40MG/0.6ML Bottle 80 MG PO ×4 (09:33→21:55)
--- NOTE | 2023-08-18 19:16 | PN_ITS ---
Subjective Subjective Patient seem, examined. Her pain is controlled when she is lying in bed. Her pain is uncontrolled when sitting or standing. She is able to walk because she takes weight off her spine, but leaning on her walker. Fariba planning discharge home in 2 days. Her is not doing well without her due to loss of home, and 2 dogs. She feels Mirtazapine is giving her side effects, would like to discontinue, she has also developed left ankle pain, she has history of gout, will give her 1 dose of prednisone. Objective Data Objective Data Vital Signs: Vital Signs Temp Pulse Resp BP Pulse Ox O2 Del Method FiO2 98.8 F 73 16 167/82 H 96 Room Air 21 08/18/23 07:31 08/18/23 07:31 08/18/23 07:31 08/18/23 07:31 08/18/23 07:31 08/18/23 07:31 08/18/23 03:27 Oxygen Delivery Method Room Air Weight: 129.6 kg Body Mass Index (BMI) 45.9 Intake & Output: Intake and Output for Last 24 Hours 08/16/23 08/17/23 08/18/23 23:59 23:59 23:59 Intake Total 1410 / 1510 880 / 880 Balance 1410 / 1510 880 / 880 Lab / Micro Data 08/13/23 05:14 08/13/23 05:14 Physical Exam Const alert General Appearance: cooperative HEENT normocephalic Eyes PERRL and EOMs intact bilaterally Neck supple, no JVD and no carotid bruits Resp normal respiratory effort, normal air movement and clear to auscultation bilaterally Cardio regular rate and regular rhythm GI normal to inspection, nondistended, normoactive bowel sounds, non-tender and non-distended Extremity normal capillary refill General Extremity: Negative for edema Skin no rashes or lesions noted General Skin Exam: no breakdown Psych affect normal Appearance: appropriate Assessment & Plan Assessment/Plan (1) Debility: (2) Low back pain: (3) Compression fracture of L1 lumbar vertebra: (4) Closed L3 vertebral fracture: (5) Morbid obesity: (6) Diabetes mellitus: (7) HTN (hypertension): (8) Osteoarthritis: (9) Depression: (10) Gout: PLAN: Plan 68 year old female with below past medical history hospitalized for L1 superior endplate compression fracture, L2 superior endplate fracture, admitted to for 3 hours daily rehabilitation, strengthening, prior to discharge home with . * Debility - PT/OT. * Pain - Tylenol 1000mg q8, Tramadol 50mg q6 prn pain (1-5), Oxycodone 10mg q4 prn pain (6-10), Lodine 300mg bid. * Bowel - Miralax 17gm daily, senna/colace 2 tablets bid, Dulcolax 10mg pr daily prn, MOM 30ml po daily prn. * DVT prophylaxis - Lovenox 40mg sc daily. * Vitamin C deficiency - Vitamin C 500mg daily. * Abrasion - Bacitracin ointment topical bid. * Vitamin D deficiency - D3 125mcg daily, D2 50,000 units per week. * Depression - Citalopram 20mg daily. * Muscle spasm - Flexeril 5mg tid. * Hypertension - Losartan 100mg daily, HCTZ 12.5mg daily. * Skin irritation - Calmoseptine topical bid. * Tinea Corporis - Nystatin topical bid. * Insomnia - Trazodone 100mg qhs, stop Mirtazapine 7.5mg qhs due to side effects. * Gas - Simethicone 80mg pchs. * Dry nares - [place] 2 sprays nasal tid prn. * Obstructive sleep apnea - She has diagnosis of sleep apnea, and benefits from CPAP use at night, to prevent drop in oxygen levels, improve daytime fatigue. Her home CPAP unit is not working, and she would benefit from sleep study so she can have a new CPAP machine. * Left ankle pain/gout - Rx prednisone 40mg po x 1 dose. Capacity Capacity Assessment Tool Can the patient make a choice & communicate that choice?: Yes Can the patient understand benefits, risks and alternatives?: Yes Can the patient make a logical, rational choice?: Yes Is the choice the patient makes consistent w/ their values?: Yes Is there an impending, emergent risk to the patient?: No Does the patient have an Advance Directive?: No Is there a Surrogate Available?: Yes i.e. HCPOA: Yes i.e. close relative (spouse, child, parent, sibling)?: Yes
[2023-08-18 19:58] VITALS: BP 145/93; PULSE 90; RESP 18; TEMP 36.3; O2SAT 93
[2023-08-18] MEDS: Citalopram 20 MG Tablet PO (21:53)
[2023-08-18] MEDS: traZODone 100 MG Tablet PO (21:53)
[2023-08-19] MEDS: Acetaminophen 500 MG Tablet 1000 MG PO ×3 (05:55→22:35)
[2023-08-19] MEDS: traMADol 50 MG Tablet PO ×3 (05:55→19:06)
[2023-08-19] MEDS: cycloBENZAPRine HCl 5 MG TABLET PO ×3 (05:56→22:36)
[2023-08-19] MEDS: Enoxaparin 40 MG/0.4 ML Syringe SC (05:56)
[2023-08-19] MEDS: Miconazole Nitrate 43 GM Bottle 1 APPLIC TOPICAL ×2 (05:56→22:37)
[2023-08-19] MEDS: Menthol/Lanolin/Calamine/Znox 113 GM Tube 1 APPLIC TOPICAL ×2 (05:57→22:37)
[2023-08-19 07:16] VITALS: BP 135/76; PULSE 71; RESP 18; TEMP 36.9; O2SAT 94
--- NOTE | 2023-08-19 08:34 | DS.PCM_ITS ---
Providers Date of Admission: 08/12/23 Primary Care Physician: HANDY MonaeC Reason For Visit: L1 FRACTURE Diagnosis Discharge Diagnosis (1) Debility: Status: Acute Code(s): R53.81 - Other malaise (2) Low back pain: Status: Acute Code(s): M54.50 - Low back pain, unspecified (3) Compression fracture of L1 lumbar vertebra: Status: Acute Code(s): S32.010A - Wedge compression fracture of first lumbar vertebra, initial encounter for closed fracture (4) Closed L3 vertebral fracture: Status: Acute Code(s): S32.039A - Unspecified fracture of third lumbar vertebra, initial encounter for closed fracture (5) Morbid obesity: Status: Acute Code(s): E66.01 - Morbid (severe) obesity due to excess calories (6) Diabetes mellitus: Status: Acute Code(s): E11.9 - Type 2 diabetes mellitus without complications (7) HTN (hypertension): Status: Chronic Code(s): I10 - Essential (primary) hypertension (8) Osteoarthritis: Status: Acute Code(s): M19.90 - Unspecified osteoarthritis, unspecified site (9) Depression: Status: Acute Code(s): F32.A - Depression, unspecified (10) Gout: Status: Acute Code(s): M10.9 - Gout, unspecified Plan 68 year old female with below past medical history hospitalized for L1 superior endplate compression fracture, L2 superior endplate fracture, admitted to for 3 hours daily rehabilitation, strengthening, prior to discharge home with chanel smith. * Debility - PT/OT. * Pain - Tylenol 1000mg q8, Tramadol 50mg q6 prn pain (1-5), Oxycodone 10mg q4 prn pain (6-10), Lodine 300mg bid. * Bowel - Miralax 17gm daily, senna/colace 2 tablets bid, Dulcolax 10mg pr daily prn, MOM 30ml po daily prn. * DVT prophylaxis - Lovenox 40mg sc daily. * Vitamin C deficiency - Vitamin C 500mg daily. * Abrasion - Bacitracin ointment topical bid. * Vitamin D deficiency - D3 125mcg daily, D2 50,000 units per week. * Depression - Citalopram 20mg daily. * Muscle spasm - Flexeril 5mg tid. * Hypertension - Losartan 100mg daily, HCTZ 12.5mg daily. * Skin irritation - Calmoseptine topical bid. * Tinea Corporis - Nystatin topical bid. * Insomnia - Trazodone 100mg qhs, stop Mirtazapine 7.5mg qhs due to side effects. * Gas - Simethicone 80mg pchs. * Dry nares - Lott Ferguson 2 sprays nasal tid prn. * Obstructive sleep apnea - She has diagnosis of sleep apnea, and benefits from CPAP use at night, to prevent drop in oxygen levels, improve daytime fatigue. Her home CPAP unit is not working, and she would benefit from sleep study so she can have a new CPAP machine. * Left ankle pain/gout - Rx prednisone 40mg po x 1 dose. Medications at Discharge Home Medications ascorbate calcium (vitamin C) 500 mg tablet 500 mg PO DAILY supplement 12/24/21 citalopram 40 mg tablet 20 mg PO DAILY depression 12/24/21 nabumetone 750 mg tablet 750 mg PO BID Supplement 12/24/21 cholecalciferol (vitamin D3) 125 mcg (5,000 unit) capsule 5,000 unit PO DAILY supplement 08/12/23 ergocalciferol (vitamin D2) 1,250 mcg (50,000 unit) capsule (Vitamin D2) 50,000 unit PO QWEEK supplement 08/12/23 acetaminophen 500 mg tablet 1,000 mg (2 x 500 mg) PO Q8 #0 tabs 08/19/23 bacitracin zinc 500 unit/gram topical ointment 1 applic topical BID 30 days #30 grams 08/19/23 cyclobenzaprine 5 mg tablet 5 mg PO TID 30 days #90 tabs 08/19/23 hydrochlorothiazide 12.5 mg capsule 12.5 mg PO DAILY 30 days #30 caps 08/19/23 losartan 100 mg tablet 100 mg PO DAILY 30 days #30 tabs 08/19/23 oxycodone 5 mg tablet 10 mg (2 x 5 mg) PO Q4H PRN PRN Pain Score 6-10 7 days #42 tabs 08/19/23 polyethylene glycol 3350 17 gram oral powder packet 17 g PO DAILY 30 days #30 ea 08/19/23 sennosides 8.6 mg-docusate sodium 50 mg tablet (Stool Softener-Stimulant Laxative) 2 tab PO BID 30 days #120 tabs 08/19/23 tramadol 50 mg tablet 50 mg PO Q6 7 days #28 tabs 08/19/23 trazodone 100 mg tablet 100 mg PO QHS 30 days #30 tabs 08/19/23 Hospital Course Operations None Procedures None Summary of Care Provided Minutes Spent on Discharge: 35 Hospital Course: 68 year old female with below past medical history hospitalized for L1 superior endplate compression fracture, L2 superior endplate fracture, admitted to for 3 hours daily rehabilitation, strengthening, prior to discharge home with . Discharge home with 08/20/2023, [facility] PT/OT/SW, Front wheeled walker, Hospital Bed. Physical Exam Const alert General Appearance: cooperative HEENT normocephalic Eyes PERRL and EOMs intact bilaterally Neck supple, no JVD and no carotid bruits Resp normal respiratory effort, normal air movement and clear to auscultation bilaterally Cardio regular rate and regular rhythm GI normal to inspection, nondistended, normoactive bowel sounds, non-tender and non-distended Extremity normal capillary refill General Extremity: Negative for edema Skin no rashes or lesions noted General Skin Exam: no breakdown Psych affect normal Appearance: appropriate Weight / BMI Weight Weight: 129.6 kg Body Mass Index (BMI) 45.9 ABG / Lab / Microbiology Data 08/13/23 05:14 08/13/23 05:14 Indicators for Scoring Admitted with or Primary Diagnosis of CVA/Stroke: No Hx of CVA/Stroke: No Modified Addison Score MRS Score at time of Evaluation: 4-Moderate/severe disability D/C Instructions Discharge Diet: No restrictions Discharge Activity: Return to Normal Activity, May Shower and Use Walker Weight Bearing Status: Weight bearing as tolerated Call your doctor if you observe: Fever of 101 or Higher, Inability to urinate, Inability to have a bowel movement, Shortness of breath, Dizziness, Fainting spells, Swelling in the ankles, Chest pain and Uncontrolled pain Additional Instructions: Discharge home with 08/20/2023, [facility] PT/OT/SW, Front wheeled walker, Hospital Bed. Please Follow Up With: SUE León When: As scheduled. Meaningful Use Info Meaningful Use Diagnoses (Choose all that apply): None applicable Discharge Plan Admission Admit Date/Time: 08/12/23 18:26 Primary Reason for Your Visit: Debility. Attending Provider: Florencio Thomas Chi Primary Care Provider: Renetta Henry Instructions Additional Instructions / Restrictions: Discharge home with 08/20/2023, [facility] PT/OT/SW, Front wheeled walker, Hospital Bed. Discharge Orders/Prescriptions Prescriptions: New polyethylene glycol 3350 17 gram Powder In Packet 17 g PO DAILY 30 Days Qty: 30 0RF sennosides-docusate sodium [Stool Softener-Stimulant Laxat] 8.6-50 mg Tablet 2 tab PO BID 30 Days Qty: 120 0RF bacitracin zinc 500 unit/gram Ointment 1 applic topical BID 30 Days Qty: 30 0RF tramadol 50 mg Tablet 50 mg PO Q6 7 Days Qty: 28 0RF acetaminophen 500 mg Tablet 1,000 mg PO Q8 Qty: 0 0RF trazodone 100 mg Tablet 100 mg PO QHS 30 Days Qty: 30 0RF hydrochlorothiazide 12.5 mg Capsule 12.5 mg PO DAILY 30 Days Qty: 30 0RF losartan 100 mg Tablet 100 mg PO DAILY 30 Days Qty: 30 0RF oxycodone 5 mg Tablet 10 mg PO Q4H PRN PRN (Reason: Pain Score 6-10) 7 Days Qty: 42 0RF cyclobenzaprine 5 mg Tablet 5 mg PO TID 30 Days Qty: 90 0RF Continued nabumetone 750 mg tablet 750 mg PO BID citalopram 40 mg tablet 20 mg PO DAILY ascorbate calcium (vitamin C) 500 mg tablet 500 mg PO DAILY cholecalciferol (vitamin D3) 125 mcg (5,000 unit) capsule 5,000 unit PO DAILY Rx Instructions: START ON OCTOBER 05, 2023 ergocalciferol (vitamin D2) [Vitamin D2] 1,250 mcg (50,000 unit) capsule 50,000 unit PO QWEEK Discontinued lisinopril-hydrochlorothiazide 10-12.5 mg tablet 1 tab PO DAILY cholecalciferol (vitamin D3) 50 mcg (2,000 unit) capsule 50 mcg PO DAILY Hold Instructions: MD Karson juarez See Rx Instructions PO 1XD Hold Instructions: Pt has been DC'd Rx Instructions: orally 1 time daily; hydroleuronic acid capsule See Rx Instructions PO 1XD Hold Instructions: Pt has been DC'd Rx Instructions: orally 1 time daily; trazodone 100 mg tablet 100 mg PO QHS Patient Comments: 1 tablet every night acetaminophen [Aphen] 325 mg tablet 650 mg PO Q6H PRN (Reason: fever or pain) bacitracin 500 unit/gram ointment 1 applic topical BID Rx Instructions: Apply to affected area for 7 days cyclobenzaprine 5 mg tablet 5 mg PO TID Patient Comments: TAKE 1 TABLET BY MOUTH UP TO 3 TIMES DAILY NEEDED FOR MUSCLE SPASMS oxycodone 5 mg capsule 5 mg PO Q6H polyethylene glycol 3350 [Miralax] 17 gram powder in packet 17 g PO DAILY sennosides-docusate sodium [Senna with Docusate Sodium] 8.6-50 mg tablet 1 tab-cap PO BID Referrals / Follow Up: Roge Diggs [Other] - 09/16/23 10:30 am ([facility]) [facility] [Other] - 09/16/23 9:45 am (X-Ray of back) Renetta Henry NP-C [Primary Care Provider] - 08/26/23 1:10 pm Disposition Disposition (needs filled in before D/C Order can be placed): Home Health Service
[2023-08-19] MEDS: BACITRACIN 15 GM Tube 1 APPLIC TOPICAL ×2 (08:58→22:36)
[2023-08-19] MEDS: Losartan Potassium 100 MG Tablet PO (08:59)
[2023-08-19] MEDS: hydroCHLOROthiazide 12.5mg 12.5 MG PO (08:59)
[2023-08-19] MEDS: Simethicone 40MG/0.6ML Bottle 80 MG PO ×4 (08:59→22:37)
[2023-08-19] MEDS: Ascorbic Acid 500 MG Tablet PO (08:59)
[2023-08-19] MEDS: Etodolac 300 MG Capsule PO ×2 (08:59→22:36)
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
[2023-08-19 20:20] VITALS: BP 140/73; PULSE 76; RESP 20; TEMP 36.7; O2SAT 96
[2023-08-19] MEDS: traZODone 100 MG Tablet PO (22:36)
[2023-08-19] MEDS: Citalopram 20 MG Tablet PO (22:36)
[2023-08-19] MEDS: Senna/Docusate Sodium 1 Tablet 2 TABLET PO (22:36)
[2023-08-20] MEDS: Acetaminophen 500 MG Tablet 1000 MG PO ×2 (05:30→13:24)
[2023-08-20] MEDS: traMADol 50 MG Tablet PO ×3 (05:30→11:58)
[2023-08-20] MEDS: cycloBENZAPRine HCl 5 MG TABLET PO ×2 (05:30→13:23)
[2023-08-20] MEDS: Enoxaparin 40 MG/0.4 ML Syringe SC (05:30)
[2023-08-20 08:20] VITALS: BP 150/82; PULSE 85; RESP 18; TEMP 36.4; O2SAT 95
[2023-08-20] MEDS: BACITRACIN 15 GM Tube 1 APPLIC TOPICAL (09:24)
[2023-08-20] MEDS: Simethicone 40MG/0.6ML Bottle 80 MG PO ×2 (09:24→13:23)
[2023-08-20] MEDS: Losartan Potassium 100 MG Tablet PO (09:25)
[2023-08-20] MEDS: Ascorbic Acid 500 MG Tablet PO (09:28)
[2023-08-20] MEDS: Etodolac 300 MG Capsule PO (09:28)
[2023-08-20] MEDS: hydroCHLOROthiazide 12.5mg 12.5 MG PO (09:28)
[2023-08-20] MEDS: Senna/Docusate Sodium 1 Tablet 2 TABLET PO (09:29)
[2023-08-20] MEDS: Polyethylene Glycol 3350 17 GM PACKET PO (09:29)
[2023-08-20 14:30] VITALS: BP 154/82; PULSE 76; RESP 16; TEMP 37.1; O2SAT 97
== END 2023-08-20 14:32 | disposition home health service (06) | DRG 560 ==
PROVIDERS: Admitting Provider Family Medicine Geriatric Medicine; PCP Nurse Practitioner Family; Visit Provider Internal Medicine
DX: S32.010D Wedge compression fracture of first lumbar vertebra, subsequent encounter for fracture with routine healing (principal); Z68.42 Body mass index [BMI] 45.0-49.9, adult; K56.7 Ileus, unspecified; E11.9 Type 2 diabetes mellitus without complications; E66.01 Morbid (severe) obesity due to excess calories; E55.9 Vitamin D deficiency, unspecified; B35.4 Tinea corporis; F32.A Depression, unspecified; I10 Essential (primary) hypertension; M19.90 Unspecified osteoarthritis, unspecified site; G47.33 Obstructive sleep apnea (adult) (pediatric); M10.072 Idiopathic gout, left ankle and foot; S32.039D Unspecified fracture of third lumbar vertebra, subsequent encounter for fracture with routine healing; G47.00 Insomnia, unspecified; X00 Exposure to uncontrolled fire in building or structure; S50.812D Abrasion of left forearm, subsequent encounter; S70.311D Abrasion, right thigh, subsequent encounter; Z79.899 Other long term (current) drug therapy
CPT/HCPCS: 36415; 36600; 70450; 71260; 72125; 73090; 74018; 74177; 76536; 80053; 82077; 82375; 82803; 83735; 84100; 84484; 85025; 85027; 93005; 94003; 94660; 95806; 97110; 97112; 97116; 97162; 97166; 97530; 97535; 97802; 99285; J7030; A4216; J2405

== ENCOUNTER → 2023-08-20 | Outpatient (CLI) | payer MEDICARE, BC, SELFPAY | END | disposition home or self-care (01) | LOC: SL 14:02 | PROVIDERS: PCP Nurse Practitioner Family; Visit Provider Family Medicine | DX: G47.33 Obstructive sleep apnea (adult) (pediatric) (principal) ==

== ENCOUNTER 2024-03-09 12:00 | Outpatient (RCR) | payer MEDICARE, BC, SELFPAY ==
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
--- NOTE | 2023-11-11 11:30 | HP.PTREVAL ---
Re-Evaluation Intro: SANCHO BROWNLEE, It has been my pleasure to treat TRISTEN PATTEN BUTTS over the last 9 visits for COMPRESSION FRACTURE OF L1 AND L3 ,LUMBAR VERTEBRA. Please see the progress note below for an update on the physical therapy plan of care! Subjective Subjective: Pain is not much better Patient is using cane Tramadol 3x/day and pain for muscles spams muscle spasms daily Objective Objective/Function: POSTURE : mild forward posture trunk flexed GAIT: reciprocal pattern slow corrie PALPATION: unremarkable NEURO: denies paresthesia/tingling ,reflexes L3-4,L4-5,L5-S1 1/ MMT: hamstring min tight LUMBAR ROM: flexion mod loss ,extension min loss ,side glides min loss MMT:( peak force) quads right 24.8 ,left 23.6,hamstrings right 22.8 ,left 21.6 ,hip flexion 23.3 right 21.8 left FLEXABLITY: hamstrings min tight Plan Plan Plan: PT INTERVENTIONS DLS , POSTURAL EX'S ,BLE STRENGTHENING , FUNCTIONAL STRENGTHENING , ACYIVITY MODIFIACTION AND MODALTIES PRN Balance/Gait/Functional tests Balance/Special Test Scores Oswestry Low Back Score: 29 Goals Goals Goal 1:: Patient to be I with HEP or back Goal Time Frame: 4-6 Weeks Goal Progress: Progressing Goal 2:: Patient to improve posture for ADL's 70% of the time Goal Time Frame: 4-6 Weeks Goal Progress: Progressing Goal 3:: Patient to demonstrate 60% improvement with decrease back pain and improved function (new goal) Goal Time Frame: 4-6 Weeks Goal 4:: Patient improve lumbar ROM for function of recovery to put on shoes Goal Time Frame: 4-6 Weeks Goal Progress: Progressing Goal 5:: Patient improve back oswestry score by 5 points to improve QOL. Goal Time Frame: 4-6 Weeks Goal Progress: Progressing Goal 6:: Ambulate with improved gait pattern without cane community distances Goal Time Frame: 4-6 Weeks Anticipated Interventions Anticipated Interventions Patient/Client Instruction: Educate patient on: Condition and Plan of Care For the Purpose of:: To decrease pain, To increase ROM, To improve muscle performance and motor function, To improve ability to perform ADL's, To increase tolerance to activity/condition/position, To improve ability of physical actions for home/community/work/leisure, To improve health of tissue, To decrease soft tissue restriction, To increase flexibility/ROM and To improve endurance Therapeutic Exercise to Include: Strength training, Endurance training, Body mechanics, Postural training, Flexibilty training and Dynamic Lumbar Stabilization Comment: BLE For the Purpose of:: To decrease pain, To increase ROM, To improve muscle performance and motor function, To improve ability to perform ADL's, To increase tolerance to activity/condition/position, To improve ability of physical actions for home/community/work/leisure, To improve health of tissue, To decrease soft tissue restriction, To increase flexibility/ROM, To improve endurance and To improve tolerance to ADL's TENS: Yes IF ES: Yes Cryotherapy (ice pack, ice massage): Yes Thermo therapy (hot pack): Yes Ultrasound (thermal/non thermal): Yes For the Purpose of:: To decrease pain, To improve nutrient delivery to tissue, To increase oxygenation perfusion, To improve health of tissue and To decrease soft tissue restriction Re-Evaluation Ending Re-evaluation ending: Please do not hesitate to contact me at [phone] by phone or if you have questions or concerns regarding this new plan of care! Sincerely, Larry Reynolds, PT, Cert MDT, OCS
--- NOTE | 2024-01-06 12:59 | HP.PTREVAL ---
Re-Evaluation Intro: SANCHO BROWNLEE, It has been my pleasure to treat TRISTEN PATTEN BUTTS over the last 25 visits for COMPRESSION FRACTURE OF L1 AND L3 ,LUMBAR VERTEBRA. Please see the progress note below for an update on the physical therapy plan of care! Subjective Subjective: Doing great in Aquatic Objective Objective/Function: * Patient will continue to benefit from skilled PT with Aquatic therapy with managing pain and walking better without cane with progressing towards goal * POSTURE : mild forward posture trunk flexed GAIT: reciprocal pattern slow corrie PALPATION: unremarkable NEURO: denies paresthesia/tingling ,reflexes L3-4,L4-5,L5-S1 11/03 MMT: hamstring min tight LUMBAR ROM: flexion mod loss ,extension min loss ,side glides min loss MMT:( peak force) quads right 25.2 ,left 24.1,hamstrings right 23.4,left 23.6 ,hip flexion 26.3 right 25.8 left FLEXABLITY: hamstrings min tight Plan Plan Plan: ADD AQUATIC THERAPY TO POC CONT 2XWEEK FOR 4WEEKS PT INTERVENTIONS DLS , POSTURAL EX'S ,BLE STRENGTHENING , FUNCTIONAL STRENGTHENING , ACYIVITY MODIFIACTION AND MODALTIES PRN ADD BALANCE TRAINING Balance/Gait/Functional tests Balance/Special Test Scores Oswestry Low Back Score: 27 Goals Goals Goal 1:: Patient to be I with HEP or back Goal Time Frame: 4-6 Weeks Goal Progress: Progressing Goal 2:: Patient to improve posture for ADL's 70% of the time Goal Time Frame: 4-6 Weeks Goal Progress: Progressing Goal 3:: Patient to demonstrate 75% improvement with decrease back pain and improved function Goal Time Frame: 4-6 Weeks Goal Progress: ( new goal) Goal 4:: Patient improve lumbar ROM for function of recovery to put on shoes Goal Time Frame: 4-6 Weeks Goal Progress: Progressing Goal 5:: Patient improve back oswestry score by 5 points to improve QOL. Goal Time Frame: 4-6 Weeks Goal Progress: Progressing Goal 6:: Ambulate with improved gait pattern without cane community distances Goal Time Frame: 4-6 Weeks Goal Progress: Progressing Anticipated Interventions Anticipated Interventions Patient/Client Instruction: Educate patient on: Condition and Plan of Care For the Purpose of:: To decrease pain, To increase ROM, To improve muscle performance and motor function, To improve ability to perform ADL's, To increase tolerance to activity/condition/position, To improve ability of physical actions for home/community/work/leisure, To improve health of tissue, To decrease soft tissue restriction, To increase flexibility/ROM and To improve endurance Therapeutic Exercise to Include: Strength training, Endurance training, Body mechanics, Postural training, Flexibilty training and Dynamic Lumbar Stabilization Comment: BLE For the Purpose of:: To decrease pain, To increase ROM, To improve muscle performance and motor function, To improve ability to perform ADL's, To increase tolerance to activity/condition/position, To improve ability of physical actions for home/community/work/leisure, To improve health of tissue, To decrease soft tissue restriction, To increase flexibility/ROM, To improve endurance and To improve tolerance to ADL's TENS: Yes IF ES: Yes Cryotherapy (ice pack, ice massage): Yes Thermo therapy (hot pack): Yes Ultrasound (thermal/non thermal): Yes For the Purpose of:: To decrease pain, To improve nutrient delivery to tissue, To increase oxygenation perfusion, To improve health of tissue and To decrease soft tissue restriction Re-Evaluation Ending Re-evaluation ending: Please do not hesitate to contact me at [phone] by phone or if you have questions or concerns regarding this new plan of care! Sincerely, Larry Reynolds PT, Cert MDT, OCS
--- NOTE | 2024-02-10 13:02 | HP.PTREVAL ---
Re-Evaluation Intro: SANCHO BROWNLEE, It has been my pleasure to treat TRISTEN PATTEN BUTTS over the last 35 visits for COMPRESSION FRACTURE OF L1 AND L3 ,LUMBAR VERTEBRA. Please see the progress note below for an update on the physical therapy plan of care! Subjective Subjective: Feeling better ,less pain overall Plan to have injection in spine epidural injection Patient able to do stairs easier. Patient walking better Objective Objective/Function: * Patient will continue to benefit from skilled PT with Aquatic therapy and land with managing pain and improving strength progressing towards goal with PT Interventions are appropriate with goals adjusted* POSTURE : mild forward posture trunk flexed GAIT: reciprocal pattern slow corrie no cane PALPATION: unremarkable NEURO: denies paresthesia/tingling ,reflexes L3-4,L4-5,L5-S1 1/ MMT: hamstring min tight LUMBAR ROM: flexion mod loss ,extension min loss ,side glides min loss MMT:( peak force) quads right 39.1 ,left 43.1,hamstrings right 28.9,left 29.2 ,hip flexion 38.7 right 34.7 left FLEXABLITY: hamstrings min tight Plan Plan Plan: ADD AQUATIC THERAPY TO POC CONT 1XWEEK AQUATIC 1X/WK ON LAND PT INTERVENTIONS DLS , POSTURAL EX'S ,BLE STRENGTHENING , FUNCTIONAL STRENGTHENING , ACYIVITY MODIFIACTION AND MODALTIES PRN ADD BALANCE TRAINING Balance/Gait/Functional tests Balance/Special Test Scores Oswestry Low Back Score: 23 Goals Goals Goal 1:: Patient to be I with HEP or back Goal Time Frame: 4-6 Weeks Goal Progress: Progressing Goal 2:: Patient to improve posture for ADL's 70% of the time Goal Time Frame: 4-6 Weeks Goal Progress: Progressing Goal 3:: Patient to demonstrate 85% improvement with decrease back pain and improved function Goal Time Frame: 4-6 Weeks Goal Progress: ( new goal) Goal 4:: Patient improve lumbar ROM for function of recovery to put on shoes Goal Time Frame: 4-6 Weeks Goal Progress: Progressing Goal 5:: Patient improve back oswestry score by 5 points to improve QOL.( new goal) Goal Time Frame: 4-6 Weeks Goal Progress: Progressing Goal 6:: Ambulate with improved gait pattern without cane community distances (met) NEW GOAL: Improve peak force quads/hams/hip by 10# to improve ADLs/housework and stairs Goal Time Frame: 4-6 Weeks Goal Progress: Progressing Anticipated Interventions Anticipated Interventions Patient/Client Instruction: Educate patient on: Condition and Plan of Care For the Purpose of:: To decrease pain, To increase ROM, To improve muscle performance and motor function, To improve ability to perform ADL's, To increase tolerance to activity/condition/position, To improve ability of physical actions for home/community/work/leisure, To improve health of tissue, To decrease soft tissue restriction, To increase flexibility/ROM and To improve endurance Therapeutic Exercise to Include: Strength training, Endurance training, Body mechanics, Postural training, Flexibilty training and Dynamic Lumbar Stabilization Comment: BLE For the Purpose of:: To decrease pain, To increase ROM, To improve muscle performance and motor function, To improve ability to perform ADL's, To increase tolerance to activity/condition/position, To improve ability of physical actions for home/community/work/leisure, To improve health of tissue, To decrease soft tissue restriction, To increase flexibility/ROM, To improve endurance and To improve tolerance to ADL's TENS: Yes IF ES: Yes Cryotherapy (ice pack, ice massage): Yes Thermo therapy (hot pack): Yes Ultrasound (thermal/non thermal): Yes For the Purpose of:: To decrease pain, To improve nutrient delivery to tissue, To increase oxygenation perfusion, To improve health of tissue and To decrease soft tissue restriction Re-Evaluation Ending Re-evaluation ending: Please do not hesitate to contact me at [phone] by phone or if you have questions or concerns regarding this new plan of care! Sincerely, Larry Reynolds, PT, Cert MDT, OCS
--- NOTE | 2024-03-09 12:26 | HP.PTDCSUM ---
Discharge Summary D/C summary: It has been my pleasure to treat TRISTEN PATTEN BUTTS referred by SANCHO BROWNLEE, with the diagnosis of COMPRESSION FRACTURE OF L1 AND L3 ,LUMBAR VERTEBRA for a total of 43 visit(s). Discharge Date: 03/09/24 Please see the following information for a summary of their discharge status. Subjective Subjective: Doing better ..overall Plan to do Aquatics therapy on own Not using home Pain Bilateral Back: Pain Intensity (Out of 10): 1 L hip: Pain Intensity (Out of 10): 1 B thigh: Pain Intensity (Out of 10): 1 knees: Pain Intensity (Out of 10): 1 Overall Improvement % Improvement: 85 Objective Objective/Function: POSTURE : mild forward posture trunk flexed GAIT: reciprocal pattern slow corrie no cane PALPATION: unremarkable NEURO: denies paresthesia/tingling ,reflexes L3-4,L4-5,L5-S1 1/ MMT: hamstring min tight LUMBAR ROM: flexion mod loss ,extension min loss ,side glides min loss MMT:( peak force) quads right 39.5 ,left 43.3,hamstrings right 29.2,left 29.2 ,hip flexion 39.2 right 38.7 left FLEXABLITY: hamstrings min tight Goals Goal 1:: Patient to be I with HEP or back Goal Progress: Goal Met Goal 2:: Patient to improve posture for ADL's 70% of the time Goal Progress: Goal Met Goal 3:: Patient to demonstrate 85% improvement with decrease back pain and improved function Goal Progress: Goal Met Goal 4:: Patient improve lumbar ROM for function of recovery to put on shoes Goal Progress: Goal Met Goal 5:: Patient improve back oswestry score by 5 points to improve QOL.( new goal) Goal Progress: Goal Met Goal 6:: Ambulate with improved gait pattern without cane community distances (met) NEW GOAL: Improve peak force quads/hams/hip by 10# to improve ADLs/housework and stairs Goal Progress: Goal Met Plan Plan: D/C D/C Information Discharge Comments: water ex's d/c sentence: If there are questions or concerns regarding this patient's physical therapy, please feel free to call me at [phone]. Thank you for the referral of this patient. Sincerely, Larry Reynolds, PT, Cert MDT, OCS Balance/Gait/Functional tests Balance/Special Test Scores Oswestry Low Back Score: 16 Improvement % Improvement: 85
== END 2024-03-09 19:00 | disposition home or self-care (01) ==
LOC: PT 12:00
PROVIDERS: PCP Nurse Practitioner Family
DX: S32.010D Wedge compression fracture of first lumbar vertebra, subsequent encounter for fracture with routine healing (principal); S32.030D Wedge compression fracture of third lumbar vertebra, subsequent encounter for fracture with routine healing
CPT/HCPCS: 97110; 97113; 97162; 97530

== ENCOUNTER → 2024-05-10 | Outpatient (CLI) | payer MEDICARE, BC, SELFPAY ==
--- NOTE | 2024-05-10 11:57 | US_ITS ---
STUDY: THYROID ULTRASOUND REASON FOR EXAM: Female, 69 years old. ENLARGED THYROID TECHNIQUE: Ultrasound evaluation of the thyroid was performed with real-time and static mancia-scale imaging. COMPARISON: 08/12/2023 FINDINGS: RIGHT LOBE: The right lobe of the thyroid gland measures 5.4 x 2.7 x 1.8 cm. There is a heterogeneous echotexture. Nodule 1: No change in the 11 x 9 x 7 mm cystic anechoic wider than tall smoothly marginated nodule with no echogenic foci (TR 1) the posterior right lobe consistent with a colloid cyst. Nodule 2:16 x 13 x 12 mm solid hypoechoic wider than tall ill-defined margin nodule with no echogenic foci (TR 4) in the posterior right lobe for which ultrasound-guided biopsy is recommended. LEFT LOBE: The left lobe of the thyroid gland measures 5.7 x 2.4 x 1.9 cm. There is a heterogeneous echotexture. Nodule 3: Shrinking (18 x 12 x 14 mm from 24 x 14 x 14 mm) solid hypoechoic wider than tall smoothly marginated nodule with no echogenicity foci (TR 4) in the posterior left lobe likely consistent with an adenoma. Nodule 4: No change in the 16 x 7 x 13 mm mixed cystic and solid hypoechoic wider than tall smoothly marginated nodule with no echogenic foci (TR 3) in the anterior left lobe and follow-up ultrasound is recommended. ISTHMUS: The isthmus measures 6 mm thick. . The regional lymph nodes are normal. US/Thyroid IMPRESSION: Multinodular thyroid gland with a dominant nodule right lobe for which ultrasound-guided biopsy is recommended. Follow-up ultrasound is recommended in 1 year. Electronically Signed: Dalton Kirkpatrick MD at 16:25 EDT ,
[2024-05-10 13:13] LABS: Absolute Lymphocyte Count 1.21 X10^3/uL (0.83-4.51); Absolute Neutrophil Count 5.8 X10^3/uL (2.0-7.7); Basophil# 0.04 X10^3/uL; Basophil% 0.5 % (0-1); Eosinophils% 2.4 % (0-5); Hematocrit 42.1 % (37-47); Hemoglobin 13.5 g/dL (12.0-15.0); Lymphocyte # 1.21 X10^3/ul (0.83-4.51); Lymphocyte % 14.7 % (19-41); Mean Corp Hgb Conc 32.1 g/dL (32-36); Mean Corpuscular Hgb 28.5 pg (27.0-32.0); Mean Corpuscular Volume 88.8 fL (81-99); Mean Platelet Vol. 9.8 fl (6.2-12.0); Monocyte% 10.9 % (0-10); NRBC Flagged by Analyzer 0 % (0-5); Neutrophil % 70.3 % (47-70); Platelet Count 211 K/mm3 (150-450); RBC Distribution Width CV 14.8 % (11.6-14.6); RBC Distribution Width SD 48.4 fl (35.1-43.9); Red Blood Count 4.74 M/mm3 (4.2-5.4); White Blood Count 8.3 K/mm3 (4.4-11.0)
[2024-05-10 13:57] LABS: ALB/GLOB Ratio 1.3 RATIO (0.9-2.4); AST(SGOT) 13 U/L (15-37); Alanine Aminotransfer ALT/SGPT 25 U/L (13-56); Albumin, Serum 4.1 g/dL (3.2-5.0); Alkaline Phosphatase 71 U/L (45-117); Anion Gap 6 (5-15); BUN 23 mg/dL (7-18); Calcium,Total 9.6 mg/dL (8.5-10.1); Chloride 108 mmol/L (98-107); Cholesterol 164 mg/dL (200); Creatinine, Serum 0.92 mg/dL (0.55-1.02); EST Glomerular Filtration Rate 65 mL/min (>60); Est Glom Filt Rate - Afr Amer 78 mL/min (>60); Globulin 3.2 g/dL (2.2-4.2); Glucose 106 mg/dL (74-106); High Density Lipoprotein 45 mg/dL; Potassium 4.1 mmol/L (3.5-5.1); Protein, Total 7.3 g/dL (6.4-8.2); Sodium Level 139 mmol/L (136-145); T4 Free Direct 1.27 ng/dL (0.76-1.46); Thyroid Stim Hormone (TSH) 0.66 uIU/mL (0.358-3.74); Triglycerides 112 mg/dL; Very Low Density Lipoprotein 22 mg/dL (5-40)
== END | disposition home or self-care (01) ==
PROVIDERS: PCP Nurse Practitioner Family; Referring Provider Nurse Practitioner Family; Visit Provider Nurse Practitioner Family
DX: E04.9 Nontoxic goiter, unspecified (principal); I10 Essential (primary) hypertension; E78.5 Hyperlipidemia, unspecified
CPT/HCPCS: 36415; 76536; 80053; 80061; 84439; 84443; 85025

== ENCOUNTER → 2024-06-05 | Outpatient (CLI) | payer MEDICARE, BC, SELFPAY | END | disposition home or self-care (01) | LOC: US 10:09 | PROVIDERS: PCP Nurse Practitioner Family; Referring Provider Nurse Practitioner Family; Visit Provider Nurse Practitioner Family | DX: E04.1 Nontoxic single thyroid nodule (principal) ==

== ENCOUNTER → 2024-07-19 | Outpatient (CLI) | payer MEDICARE, BC, SELFPAY ==
--- NOTE | 2024-07-19 07:28 | NM_ITS ---
CLINICAL: 87-year-old female with history of thyroid nodularity. I-123 THYROID UPTAKE and SCAN COMPARISON: Thyroid ultrasound report 05/10/2024 FINDINGS: The patient was administered a 349 uCi I-123 capsule by mouth. The 4-hour I-123 radioactive iodine thyroidal uptake was calculated to be 13.2 % (normal 5 to 25 %). The 24-hour I-123 radioactive iodine thyroidal uptake was calculated to be 32.2 % (normal 5 to 40 %). The I-123 thyroid scan demonstrates homogeneous radiopharmaceutical concentration throughout both lobes of a U -shaped thyroid gland. There are no colloidal parenchymal hypofunctioning cold nodules noted in either lobe of the thyroid gland. NM/Thyroid Uptake Single or Mult IMPRESSION: 1. NORMAL 4- and 24-hour I-123 radioactive iodine thyroidal uptakes. 2. The I-123 thyroid scan is consistent with stage I nodular colloid goiter secondary to the presence of isthmus radiopharmaceutical concentration. (Justice et al, J Nucl Med 32: 1455, 1990). 3. No hypofunctioning-cold nodules are identified. Electronically Signed: Dalton Russo DO at 22:14 EDT ,
== END | disposition home or self-care (01) ==
LOC: NM 07:27
PROVIDERS: PCP Nurse Practitioner Family; Referring Provider Nurse Practitioner Family; Visit Provider Nurse Practitioner Family
DX: E04.2 Nontoxic multinodular goiter (principal)
CPT/HCPCS: 78012; A9541

== ENCOUNTER → 2024-11-22 | Outpatient (CLI) | payer MEDICARE, BC, SELFPAY | END | disposition home or self-care (01) | LOC: LABSPEC 15:24 | PROVIDERS: PCP Nurse Practitioner Family; Referring Provider Nurse Practitioner Women's Health; Visit Provider Nurse Practitioner Women's Health | DX: N89.8 Other specified noninflammatory disorders of vagina (principal); R30.0 Dysuria | CPT/HCPCS: 87070; 87077; 87086; 87088; 87186; 87205 ==

== ENCOUNTER → 2024-11-24 | Outpatient (CLI) | payer MEDICARE, BC, SELFPAY ==
--- NOTE | 2024-11-24 10:22 | BI_ITS ---
MAMMOGRAPHY - BILATERAL SCREENING REASON FOR EXAM: Female, 69 years old. Routine annual screening examination. PERTINENT HISTORY: Mother with breast cancer. Grandmother with breast cancer. Aunt with breast cancer. TECHNIQUE: Digital bilateral breast coral (3D mammographic acquisition) in the CC and MLO projections. 2-D mediolateral oblique (MLO) and craniocaudad (CC) views of both breasts were obtained. CAD: Full Field Digital Mammography with Computer Added Detection was performed. COMPARISON: Comparison is made with prior study August 04, 2023 and July 21, 2022. FINDINGS: Breast Composition: There are scattered areas of fibroglandular density. There are no dominant masses or suspicious calcifications. Stable bilateral fat containing axillary lymph nodes. No other significant abnormalities are identified. There has been no significant change since the prior study. BI/SCRN MAMM (CAD)W/CORAL BILAT IMPRESSION: Stable bilateral screening mammogram. Yearly follow-up mammogram recommended. (A) ASSESSMENT CATEGORY: BIRADS Category 2: Benign. A letter regarding these results will be sent to the patient by the facility within 30 days. Approximately 10% of breast cancers are not detected by mammography. A normal mammogram should not delay biopsy of a clinically suspicious abnormality. [id number] Electronically Signed: Pelon Key MD at 11:18 EST ,
== END | disposition home or self-care (01) ==
LOC: OPBI 10:20
PROVIDERS: PCP Nurse Practitioner Family; Referring Provider Nurse Practitioner Women's Health; Visit Provider Nurse Practitioner Women's Health
DX: Z12.31 Encounter for screening mammogram for malignant neoplasm of breast (principal); Z80.3 Family history of malignant neoplasm of breast
CPT/HCPCS: 77063; 77067

== ENCOUNTER → 2025-06-25 | Outpatient (CLI) | payer MEDICARE, BC, SELFPAY ==
[2025-06-25 16:12] LABS: AST(SGOT) 15 U/L (<=31); Alanine Aminotransfer ALT/SGPT 21 U/L (<=34); Albumin, Serum 4.5 g/dL (3.4-4.8); Alkaline Phosphatase 83 U/L (35-104); Anion Gap 16 (5-15); BUN 30 mg/dL (4-19); BUN/Creat Ratio 32.0 RATIO (10-20); Calcium,Total 10.0 mg/dL (7.6-11.0); Carbon Dioxide 21.5 mmol/L (21.0-32.0); Chloride 101 mmol/L (98-108); Cholesterol 181 mg/dL (<=200); Globulin 2.9 g/dL (2.2-4.2); Glucose 108 mg/dL (70-99); Low Density Lipoprotein Calc. 113 mg/dL; Potassium 4.4 mmol/L (3.3-5.1); Triglycerides 124 mg/dL; Very Low Density Lipoprotein 25 mg/dL (5-40); cholesterol:hdl ratio screen 4.22
[2025-06-25 16:35] LABS: Hematocrit 41.5 % (37-47); Hemoglobin 13.4 g/dL (12.0-15.0); Immature Granulocytes Count 0.080 X10^3/uL (0.0-0.0); Mean Corp Hgb Conc 32.3 g/dL (32-36); Mean Corpuscular Volume 85.6 fL (81-99); Mean Platelet Vol. 9.8 fl (6.2-12.0); NRBC Flagged by Analyzer 0 % (0-5); Platelet Count 333 K/mm3 (150-450); RBC Distribution Width CV 15.8 % (11.6-14.6); RBC Distribution Width SD 49.1 fl (35.1-43.9); Red Blood Count 4.85 M/mm3 (4.2-5.4); White Blood Count 12.0 K/mm3 (4.4-11.0)
== END | disposition home or self-care (01) ==
LOC: BFHLAB 11:32
PROVIDERS: PCP Nurse Practitioner Family; Visit Provider Nurse Practitioner Family
DX: I10 Essential (primary) hypertension (principal); E78.5 Hyperlipidemia, unspecified; E04.9 Nontoxic goiter, unspecified
CPT/HCPCS: 36415; 80053; 80061; 84439; 84443; 85025

== ENCOUNTER → 2025-08-01 | Outpatient (CLI) | payer MEDICARE, BC, SELFPAY ==
--- NOTE | 2025-08-01 13:57 | BD_ITS ---
PROCEDURE: DEXA BONE DENSITY STUDY 08/01/2025 REASON FOR EXAM: F, age 70 y/o . Postmenopausal screening. TECHNIQUE: Procedure Code: BDDBD Modality: DX Procedure: DEXA BONE DENSITY STUDY COMPARISON: 2010 FINDINGS: BMD and T-SCORES Lumbar spine: 1.386 g/cm2, T-score 2.6 Levels: L1 through L4 Change from prior: Decrease of 3.5%. Left femoral neck: 0.937 g/cm2, T-score 0.8 Femoral neck comparison data not recommended for monitoring change. Prior T-score Left total hip: 1.202 g/cm2, T-score 2.1 Change from prior: Decrease of 11.4%. Right femoral neck: 0.977 g/cm2, T-score 1.1 Femoral neck comparison data not recommended for monitoring change. Prior T-score Right total hip: 1.179 g/cm2, T-score 1.9 Change from prior: Decrease of 14.4%. The World Health Organization has defined the following categories based on bone density: Normal bone density: T-score equal to or greater than -1.0 Osteopenia: T-score between -1.0 and -2.5 Osteoporosis: T-score equal to or less than -2.5 FRAX (or Comparable) Fracture Risk Assessment: 10 Year Probability of Fracture: Major Osteoporotic Fracture: 8.6% Hip Fracture: 0.2% (Note: FRAX is not to be reported in setting of normal range bone density, osteoporosis on DEXA, known history of osteoporosis, prior osteoporotic hip or vertebral fracture, or for any patient undergoing pharmacological treatment for bone loss.) The National Osteoporosis Foundation (NOF) recommends pharmacological treatment for patients with a FRAX 10-year risk of 3% or higher for a hip fracture, or 20% or higher for a major osteoporotic fracture, to prevent osteoporosis and reduce fracture risk. The patient does not meet the pharmacological treatment recommendations for prevention of osteoporosis. BD/Dexa Bone Density Study IMPRESSION: NORMAL T-SCORES. Recommend follow-up as clinically warranted. Reading Location: [id number]
== END | disposition home or self-care (01) ==
LOC: OPBD 13:52
PROVIDERS: PCP Nurse Practitioner Family; Referring Provider Nurse Practitioner Family; Visit Provider Nurse Practitioner Family
DX: M85.80 Other specified disorders of bone density and structure, unspecified site (principal); M81.0 Age-related osteoporosis without current pathological fracture
CPT/HCPCS: 77080